=== PATIENT | female | born 1950 | race African-American/Black ===

== ENCOUNTER 2016-06-14 10:42 | Inpatient (IN) | payer OTHER ==
[~2016-06-14] VITALS: Ht 172.7 cm; Wt 98.9 kg
--- NOTE | 2016-06-14 10:50 | NUR ---
PT PRESENTS TO ER C/O OF GENERALIZED ABDOMINAL PAIN AND N/V SINCE YESTERDAY. PT STATES BROTHER IN LAW HAS BEEN SICK WITH SIMILAR SYMPTOMS
--- NOTE | 2016-06-14 10:56 | ED GI/GU/ABDOMINAL COMPLAINT ---
History of Present Illness General Chief Complaint: Abdominal Pain/Flank Pain Stated Complaint: ABD PAIN Source: patient Exam Limitations: no limitations Vital Signs & Intake/Output Vital Signs & Intake/Output Vital Signs Date Time Temp Pulse Resp B/P Pulse O2 O2 Flow FiO2 Ox Delivery Rate 06/14 1447 102.1 106 18 128/58 97 Room Air 06/14 1333 103.8 06/14 1319 103.1 06/14 1254 102.3 95 18 133/63 96 Room Air 06/14 1208 102.4 06/14 1049 97.6 90 20 121/65 95 Room Air Reconcile Medications Cholecalciferol (Vitamin D3) (Vitamin D3) 2,000 UNIT TABLET 1 TAB PO DAILY SUPPLEMENT (Reported) Hydrochlorothiazide 25 MG TABLET 1 TAB PO DAILY WATER PILL (Reported) Losartan Potassium (Cozaar) 50 MG TABLET 1 TAB PO DAILY HEART (Reported) Triage Note: PT PRESENTS TO ER C/O OF GENERALIZED ABDOMINAL PAIN AND N/V SINCE YESTERDAY. PT STATES BROTHER IN LAW HAS BEEN SICK WITH SIMILAR SYMPTOMS Triage Nurses Notes Reviewed? yes ? N Is pt currently ? No Onset: Gradual Duration: day(s): (2) Timing: remote history Quality/Severity: cramping Severity Numbers: 8 Location: periumbilical Radiation: no radiation Activities at Onset: none Prior Abdominal Problems: none Past Sexual History: Unobtainable at this time No Modifying Factors: none HPI: Patient is a 66-year-old female presenting to the emergency department with chief complaint of lower abdominal pain, nausea, vomiting, chills since late last night. Pain progressively getting worse in the periumbilical region. Pain is sharp and stabbing. Her son-in-law was sick with similar symptoms. Denies getting the flu vaccination THIS YR. Denies any diarrhea. Denies any urinary frequency or urgency or dysuria. No shortness of breath. No coughing. Denies upper respiratory congestion. Denies sore throat. No chest pain. (VAHID ARIAS) Allergies Coded Allergies: prednisone (Severe, RASH 06/14/16) Sulfa (Sulfonamide Antibiotics) (UNKNOWN 06/14/16) (DENNIS GUILLEN MD) Past History Travel History Traveled to [place] past 21 day No Medical History Any Pertinent Medical History? see below for history Cardiovascular: hypertension Surgical History Surgical History: non-contributory Psychosocial History What is your primary language Khmer Tobacco Use: Never used Family History Hx Contributory? No (VAHID ARIAS) Review of Systems Review of Systems Constitutional: Reports: see HPI, chills, malaise, weakness. Comments Review of systems: See HPI, All other systems negative. Constitutional, no weight loss HEENT: No visual changes no sore throat no congestion Cardiovascular: No chest pain ,palpitation , orthopnea or ankle swelling Skin, no jaundice no rashes Respiratory: No dyspnea cough sputum or hemoptysis GI: No diarrhea : No dysuria No hematuria Muscle skeletal: no back pain, no neck pain, Neurologic: No numbness no confusion Psych: No stress anxiety Immunology: No splenectomy or history of AIDS (VAHID ARIAS) Physical Exam Physical Exam General Appearance: well developed/nourished, no apparent distress, alert, awake , comfortable Gastrointestinal: soft, tenderness Comments: Well-developed well-nourished person in no acute distress HEENT: Pupils equally round and reactive to light and accommodation. Nose is atraumatic. External auditory canal and Tympanic membranes clear. Pharynx normal. No swelling or edema. Neck: Normal inspection Back: Nontender, no CVA tenderness. Full range of motion Cardiovascular: Regular rate and rhythms no murmurs rubs or gallops, normal JVP Respiratory: Chest nontender. No respiratory distress.breath sounds clear to auscultation bilaterally Abdomen: Soft, tenderness to palpation in the periumbilical region, mild guarding no rebound tenderness, no appreciable organomegaly. Normal bowel sounds. No ascites Extremity: No edema Neuro: Alert oriented x3 Skin: No appreciable rash on exposed skin, skin is warm and dry. Psych: Mood and affect is normal, memory and judgment is normal. Core Measures ACS in differential dx? No Severe Sepsis Present: No Septic Shock Present: No (VAHID ARIAS) Progress Differential Diagnosis: UTI/pyelo, GASTRITIS, DEHYDRATION, ELECTROLYTE ABNORMALITY, VIRAL SYNDROME, PANCREATITIS, CHOLECYSTITIS Plan of Care: Orders Procedure Date/time Status Lab Add-on Test 06/14 1451 Active LACTIC ACID 06/14 1353 Complete EKG 06/14 1350 Active BLOOD CULTURE 06/14 1134 Active TROPONIN LEVEL 06/14 1117 Complete RAPID VIRAL INFLUENZA A 06/14 1114 Complete URINALYSIS 06/14 1100 Complete LIPASE 06/14 1053 Complete LACTIC ACID 06/14 1053 Complete COMPREHENSIVE METABOLIC PANEL 06/14 1053 Complete CBC WITHOUT DIFFERENTIAL 06/14 1053 Complete AMYLASE 06/14 1053 Complete Laboratory Tests 06/14/16 1400: Lactic Acid 1.8 06/14/16 1345: Urine Color YEL, Urine Clarity CLEAR, Urine pH 6.0, Ur Specific [place] 1.010, Urine Protein NEG, Urine Ketones NEG, Urine Nitrite NEG, Urine Bilirubin NEG, Urine Urobilinogen 0.2, Ur Leukocyte Esterase NEG, Ur Microscopic EXAM NOT REQUIRED, Urine Hemoglobin NEG, Urine Glucose NEG 06/14/16 1117: Anion Gap 16, Estimated GFR > 60, BUN/Creatinine Ratio 14.3, Glucose 146 H, Lactic Acid 2.6 H, Calcium 8.9, Total Bilirubin 0.9, AST 21, ALT 29, Alkaline Phosphatase 104, Troponin I < 0.01, Total Protein 7.3, Albumin 3.9, Globulin 3.4 , Albumin/Globulin Ratio 1.1, Amylase 52, Lipase 22 L, CBC w Diff NO MAN DIFF REQ, RBC 4.87, MCV 80.0 L, MCH 26.5 L, RDW 14.6 H, MPV 9.5, Gran % 87.5 H, Lymphocytes % 11.6 L, Monocytes % 0.6 L, Eosinophils % 0, Basophils % 0.3, Absolute Granulocytes 12.3 H, Absolute Lymphocytes 1.6, Absolute Monocytes 0.1 L, Absolute Eosinophils 0, Absolute Basophils 0, PUBS MCHC 33.1 Microbiology 06/14 1345 BLOOD: Blood Culture - RECD 06/14 1202 BLOOD: Blood Culture - RECD Diagnostic Imaging: Viewed by Me: CT Scan. Discussed w/RAD: CT Scan. Radiology Impression: ATIENT: JOSÉ MIGUELMILO PRESENT AGE : 66 PATIENT ACCOUNT NO: [id number] : 51 LOCATION: [facility] ORDERING PHYSICIAN: VAHID DAVID SERVICE DATE: 06/14/16 EXAM TYPE: CAT - CT ABD & PELVIS W IV CONTRAST EXAMINATION: CT ABDOMEN AND PELVIS WITH CONTRAST CLINICAL INFORMATION: Nausea vomiting and abdominal pain. COMPARISON: None. TECHNIQUE: Multidetector volumetric imaging was performed of the abdomen and pelvis before and after the IV administration of 95 mL of Optiray 320 intravenous contrast. Sagittal and coronal reformatted images were obtained on the technologist's workstation. DLP: 884 mGy-cm. FINDINGS: LUNG BASES: Small focus of probable subsegmental discoid atelectasis posterior basal segment right lower lobe. LIVER AND SPLEEN: Unremarkable. Incidental note is made of a prominent Jade's lobe of the liver, normal variation. Spleen appears unremarkable. PANCREAS GALLBLADDER AND BILIARY TREE: Pancreas appears somewhat atrophic. Gallbladder and biliary tree are unremarkable. KIDNEYS, URETERS, AND ADRENALS: Unremarkable. URINARY BLADDER: Unremarkable containing a small amount of fluid. GI TRACT: There is a small sliding hiatal hernia. There are multiple air and fluid-filled loops of large and small bowel scattered throughout the abdomen most likely an ileus type of pattern although the distal small bowel is less dilated than the proximal. The cecum is located deep within the pelvis. The patient's appendix is dilated measuring up to 15 mm maximal dimension best seen on axial image 73 through 86 of series 2 and sagittal image 82. The appendix loops superiorly and then continues inferiorly back into the pelvis towards the right with moderate surrounding soft tissue stranding and and a small amount of intraperitoneal free fluid most consistent with an acute appendicitis. No extraluminal gas is identified, however rupture is questioned. PERITONEAL CAVITY : There is a small amount of intraperitoneal free fluid along the left paracolic gutter, and a small amount of free fluid in the deep pelvis with associated soft tissue stranding as noted above. RETROPERITONEUM: Mild atherosclerotic aortic changes without aneurysmal dilatation. PELVIC ORGANS: Uterus is not identified and is likely been removed. What appears to represent the bilateral adnexa appear unremarkable. OSSEOUS STRUCTURES: No focal osseous lesions. Mild degenerative changes. ANTERIOR ABDOMINAL WALL AND SOFT TISSUES: There is diastases of the rectus abdominis musculature with a small periumbilical hernia containing only mesenteric fat. There are small benign-appearing bilateral inguinal lymph nodes. IMPRESSION: 1. These are most consistent with acute appendicitis with questionable rupture. No definite abscess is seen at this time. 2. Ileus type of pattern of large and small bowel. 3. Small sliding hiatal hernia. 4. Small periumbilical hernia. 5. Otherwise largely unremarkable examination. Results were discussed with Vahid DAVID at 1345 hrs on 08/2016. It was ascertained that the content and urgency of the report was understood at the time of direct communication. Surgical consultation was recommended. DICTATED BY: LEONIDES NAM MD DATE/TIME DICTATED:06/14/161317 FLOOR COVERING PRINTER:MARLEY DATE/TIME TRANSCRIBED:06/14/161317 CONFIDENTIAL, DO NOT COPY WITHOUT APPROPRIATE AUTHORIZATION. <Electronically signed in Other Vendor System> SIGNED BY: LEONIDES NAM MD 06/14/16 1354 Initial ED EKG: sinus rhythm 100 bpm, PVCs, nonspecific T abnormalities Prior EKG: changed Comments: 06/14/2016 12:18:59 PM on arrival patient is afebrile in moderate distress with reproducible periumbilical pain with guarding. Patient also reports nausea and vomiting. Cannot exclude appendicitis, viral syndrome. Patient will be started on IV fluids, given IV Tylenol for pain 06/14/2016 12:39:24 PM shortly after arrival patient spiked fever of 102. IV Tylenol self using. Patient reports feeling somewhat improved with IV Tylenol. 06/14/2016 12:59:[address] results at this time. Patient resting comfortably. 06/14/2016 1:40:07 PM on reevaluation patient feeling improved, still having moderate abdominal pain on exam. CT shows acute appendicitis with questionable rupture. IV Rocephin and Flagyl initiated. IV Toradol and IV fluids being given as well. Spoke with Dr. Caal, he will take the patient operating room this evening for removal of appendix. 06/14/2016 2:18:50 PM surgical physician assistant director of security in to evaluate the patient. 06/14/2016 2:38:18 PM patient will go to the operating room around 5 PM this evening. Resting comfortably. Slow fluids infusing. (MOHIT DAVID,VAHID) Departure Departure Time of Disposition: 1416 Disposition: STILL A PATIENT Condition: Stable Clinical Impression Primary Impression: Acute appendicitis Qualifiers: Acute appendicitis type: unspecified acute appendicitis type Qualified Code: K35.80 - Unspecified acute appendicitis Referrals: MARIA R COOPER MD (PCP/Family) Referred to [facility] as new patient No Departure Forms: Customer Survey General Discharge Information OR/GI Note Spoke With: BEN TERRELL,JOCELINE Caballero ED Treatment Decision: MILO VALDEZ requires urgent operative management or an emergent procedure that cannot be performed in the Emergency Room setting. Patient requiring surgical removal of the neck secondary to infection. Transport To: [facility] (VAHID ARIAS) PA/WHISTLE PUNK Co-Sign Statement Statement: ED Attending supervision documentation- x I saw and evaluated the patient. I have also reviewed all the pertinent lab results and diagnostic results. I agree with the findings and the plan of care as documented in the PA's/WHISTLE PUNK's documentation. [] I have reviewed the ED Record and agree with the PA's/WHISTLE PUNK's documentation. [] Additions or exceptions (if any) to the PAs/WHISTLE PUNK's note and plan are summarized below: [] (WILMER TERRELL,DENNIS)
--- NOTE | 2016-06-14 11:21 | NUR ---
BLOOD DRAWN 1SST, 1 BLUE, 1 LAV, 1 CASTRO
[2016-06-14 11:25] LABS: ABSOLUTE BASOPHIL COUNT 0 /CUMM (0.0-0.2); ABSOLUTE EOSINOPHIL COUNT 0 /CUMM (0.0-0.7); ABSOLUTE GRANULOCYTE CT 12.3 /CUMM (1.4-6.5); ABSOLUTE LYMPH COUNT 1.6 /CUMM (1.2-3.4); ABSOLUTE MONOCYTE COUNT 0.1 /CUMM (0.10-0.60); BASOPHIL % 0.3 % (0.0-2.0); EOSINOPHIL % 0 % (0-5); MEAN CORPUSCULAR HGB 26.5 PG (27.0-31.0); MEAN CORPUSCULAR HGB CONC 33.1 G/DL (33.0-37.0); MEAN PLATELET VOLUME 9.5 FL (7.4-10.4); PLATELET COUNT 250 /CUMM (130-400); RBC DISTRIBUTION WIDTH 14.6 % (11.5-14.5); RED BLOOD CELL CT 4.87 /CUMM (4.20-5.40); WHITE BLOOD CELL COUNT 14.1 /CUMM (4.8-10.8)
[2016-06-14 11:51] LABS: GRANULOCYTE % 87.5 % (42.2-75.2)
--- NOTE | 2016-06-14 12:05 | NUR ---
FLU SWAB SENT. PA NOTIFIED OF TEMP 102.4, 1ST SET BLD CX SENT, IV EST AND FLUIDS RUNNING.
--- NOTE | 2016-06-14 12:59 | NUR ---
TP CT VIA STRETCHER. PT HAS BEEN SLEEPING.
--- NOTE | 2016-06-14 13:31 | NUR ---
BACK FROM CT, 2ND LITER IVF INFUSING AND TORADOL GIVEN. MST AT BEDSIDE FOR ADDITIONAL ATTEMPT AT 2ND SET BLD CX.
--- NOTE | 2016-06-14 13:55 | CT SCAN REPORT ---
EXAMINATION: CT ABDOMEN AND PELVIS WITH CONTRAST CLINICAL INFORMATION: Nausea vomiting and abdominal pain. COMPARISON: None. TECHNIQUE: Multidetector volumetric imaging was performed of the abdomen and pelvis before and after the IV administration of 95 mL of Optiray 320 intravenous contrast. Sagittal and coronal reformatted images were obtained on the technologist's workstation. DLP: 884 mGy-cm. FINDINGS: LUNG BASES: Small focus of probable subsegmental discoid atelectasis posterior basal segment right lower lobe. LIVER AND SPLEEN: Unremarkable. Incidental note is made of a prominent Jade's lobe of the liver, normal variation. Spleen appears unremarkable. PANCREAS GALLBLADDER AND BILIARY TREE: Pancreas appears somewhat atrophic. Gallbladder and biliary tree are unremarkable. KIDNEYS, URETERS, AND ADRENALS: Unremarkable. URINARY BLADDER: Unremarkable containing a small amount of fluid. GI TRACT: There is a small sliding hiatal hernia. There are multiple air and fluid-filled loops of large and small bowel scattered throughout the abdomen most likely an ileus type of pattern although the distal small bowel is less dilated than the proximal. The cecum is located deep within the pelvis. The patient's appendix is dilated measuring up to 15 mm maximal dimension best seen on axial image 73 through 86 of series 2 and sagittal image 82. The appendix loops superiorly and then continues inferiorly back into the pelvis towards the right with moderate surrounding soft tissue stranding and and a small amount of intraperitoneal free fluid most consistent with an acute appendicitis. No extraluminal gas is identified, however rupture is questioned. PERITONEAL CAVITY: There is a small amount of intraperitoneal free fluid along the left paracolic gutter, and a small amount of free fluid in the deep pelvis with associated soft tissue stranding as noted above. RETROPERITONEUM: Mild atherosclerotic aortic changes without aneurysmal dilatation. PELVIC ORGANS: Uterus is not identified and is likely been removed. What appears to represent the bilateral adnexa appear unremarkable. OSSEOUS STRUCTURES: No focal osseous lesions. Mild degenerative changes. ANTERIOR ABDOMINAL WALL AND SOFT TISSUES: There is diastases of the rectus abdominis musculature with a small periumbilical hernia containing only mesenteric fat. There are small benign-appearing bilateral inguinal lymph nodes. IMPRESSION: 1. These are most consistent with acute appendicitis with questionable rupture. No definite abscess is seen at this time. 2. Ileus type of pattern of large and small bowel. 3. Small sliding hiatal hernia. 4. Small periumbilical hernia. 5. Otherwise largely unremarkable examination. Results were discussed with Elana DAVID at 1345 hrs on 06/14/2016. It was ascertained that the content and urgency of the report was understood at the time of direct communication. Surgical consultation was recommended.
--- NOTE | 2016-06-14 14:17 | NUR ---
SURGICAL PA AT BEDSIDE
[2016-06-14] MEDS ORDERED: COZAAR50 M1 PO (14:36)
[2016-06-14] MEDS ORDERED: VITAMIN D32000 UNI1 PO (14:37)
[2016-06-14] MEDS ORDERED: HYDROCHLOROTHIA25 M1 PO (14:37)
--- NOTE | 2016-06-14 15:00 | NUR ---
PT REPORTS MORPHINE IS HELPING AND FEELS HER PAIN IS TOLERABLE RIGHT NOW. CONSENTED FOR OR BY SURGICAL PA. OR TIME 1700.
--- NOTE | 2016-06-14 15:10 | History & Physical Pre-Op ---
GARETH LUZ 06/14/16 8967: General Information and HPI MD Statement: I have seen and personally examined MILO VALDEZ and documented this H&P. The patient is a 66 year old F who presented with a patient stated chief complaint of [ABDOMINAL PAIN]. Source of Information: patient Exam Limitations: no limitations History of Present Illness: This 66 year old female with history of hypertension presents with less than 24 hours of abdominal pain. She reports initially feeling chills, followed by abdominal "pressure" and pain, followed by nausea and vomiting this morning. She reports she thought she might have had a uti causing her abdominal discomfort, but denies dysuria. Also reports some dizziness intermittently since yesterday. No shortness of breath. No chest pains. No changes with bowel function. She was going to see her PCP, Dr.Sudipta Storm, until her symptoms became intolerable. Allergies/Medications Allergies: Coded Allergies: prednisone (Severe, RASH 06/14/16) Sulfa (Sulfonamide Antibiotics) (UNKNOWN 06/14/16) Home Med list Cholecalciferol (Vitamin D3) (Vitamin D3) 2,000 UNIT TABLET 1 TAB PO DAILY SUPPLEMENT (Reported) Hydrochlorothiazide 25 MG TABLET 1 TAB PO DAILY WATER PILL (Reported) Losartan Potassium (Cozaar) 50 MG TABLET 1 TAB PO DAILY HEART (Reported) Past History Medical History Cardiovascular: hypertension Surgical History Pertinent Surgical History: hysterectomy, knee arthroscopy, meniscal repair Past Family/Social History Family History Relations & Conditions if any MOTHER FH: diabetes mellitus MOTHER FH: diabetes mellitus Relation not specified for: FH: heart disease Psychosocial History Primary Language: Nepalese Smoking Status: Never Smoked ETOH Use: occasional use Other Social History: . 2 children. Employment History Employment: Retired Review of Systems Review of Systems: admits: abdominal pain, nausea and vomiting, chills and sweats, dizziness denies: shortness of breath, chest pain, dysuria, constipation/diarrhea Exam & Diagnostic Data Last 24 Hrs of Vital Signs/I&O Vital Signs Date Time Temp Pulse Resp B/P Pulse O2 O2 Flow FiO2 Ox Delivery Rate 06/14 1447 102.1 106 18 128/58 97 Room Air 06/14 1333 103.8 06/14 1319 103.1 06/14 1254 102.3 95 18 133/63 96 Room Air 06/14 1208 102.4 06/14 1049 97.6 90 20 121/65 95 Room Air Intake & Output 06/14 1600 06/14 0800 06/14 0000 Intake Total 2200 Output Total Balance 2200 Intake, IV 2200 Patient 218 lb Weight Physical Exam: General - alert & oriented x 3. uncomfortable. no acute distress. Skin - no rashes noted. Neck - soft and supple. no lymphadenopathy. Lungs - clear bilaterally. no w/r/r. Cardiac - s1s2. tachycardic 100s-110 Abdomen - obese. soft. no bowel sounds appreciated. low transverse incision appreciated from prior hysterectomy. diffusely tender, but mostly in right lower quadrant. Extremities - warm bilaterally. no c/c/e. calves soft and nontender b/l. Neuro - no focal deficits. speech smooth and coordinated. no motor or sensory deficits appreciated. Last 24 Hrs of Labs/Jose A: Laboratory Tests 06/14/16 1400: Lactic Acid 1.8 06/14/16 1345: Urine Color YEL, Urine Clarity CLEAR, Urine pH 6.0, Ur Specific Hooper 1.010, Urine Protein NEG, Urine Ketones NEG, Urine Nitrite NEG, Urine Bilirubin NEG, Urine Urobilinogen 0.2, Ur Leukocyte Esterase NEG, Ur Microscopic EXAM NOT REQUIRED, Urine Hemoglobin NEG, Urine Glucose NEG 06/14/16 1117: Anion Gap 16, Estimated GFR > 60, BUN/Creatinine Ratio 14.3, Glucose 146 H, Lactic Acid 2.6 H, Calcium 8.9, Total Bilirubin 0.9, AST 21, ALT 29, Alkaline Phosphatase 104, Troponin I Pending, Total Protein 7.3, Albumin 3.9, Globulin 3.4, Albumin/Globulin Ratio 1.1, Amylase 52, Lipase 22 L, CBC w Diff NO MAN DIFF REQ, RBC 4.87, MCV 80.0 L, MCH 26.5 L, RDW 14.6 H, MPV 9.5, Gran % 87.5 H, Lymphocytes % 11.6 L, Monocytes % 0.6 L, Eosinophils % 0, Basophils % 0.3, Absolute Granulocytes 12.3 H, Absolute Lymphocytes 1.6, Absolute Monocytes 0.1 L, Absolute Eosinophils 0, Absolute Basophils 0, PUBS MCHC 33.1 Microbiology 06/14 1345 BLOOD: Blood Culture - RECD 06/14 1202 BLOOD: Blood Culture - RECD Diagnostic Data Other Results EXAMINATION: CT ABDOMEN AND PELVIS WITH CONTRAST CLINICAL INFORMATION: Nausea vomiting and abdominal pain. COMPARISON: None. TECHNIQUE: Multidetector volumetric imaging was performed of the abdomen and pelvis before and after the IV administration of 95 mL of Optiray 320 intravenous contrast. Sagittal and coronal reformatted images were obtained on the technologist's workstation. DLP: 884 mGy-cm. FINDINGS: LUNG BASES: Small focus of probable subsegmental discoid atelectasis posterior basal segment right lower lobe. LIVER AND SPLEEN: Unremarkable. Incidental note is made of a prominent Jade's lobe of the liver, normal variation. Spleen appears unremarkable. PANCREAS GALLBLADDER AND BILIARY TREE: Pancreas appears somewhat atrophic. Gallbladder and biliary tree are unremarkable. KIDNEYS, URETERS, AND ADRENALS: Unremarkable. URINARY BLADDER: Unremarkable containing a small amount of fluid. GI TRACT: There is a small sliding hiatal hernia. There are multiple air and fluid-filled loops of large and small bowel scattered throughout the abdomen most likely an ileus type of pattern although the distal small bowel is less dilated than the proximal. The cecum is located deep within the pelvis. The patient's appendix is dilated measuring up to 15 mm maximal dimension best seen on axial image 73 through 86 of series 2 and sagittal image 82. The appendix loops superiorly and then continues inferiorly back into the pelvis towards the right with moderate surrounding soft tissue stranding and and a small amount of intraperitoneal free fluid most consistent with an acute appendicitis. No extraluminal gas is identified, however rupture is questioned. PERITONEAL CAVITY: There is a small amount of intraperitoneal free fluid along the left paracolic gutter, and a small amount of free fluid in the deep pelvis with associated soft tissue stranding as noted above. RETROPERITONEUM: Mild atherosclerotic aortic changes without aneurysmal dilatation. PELVIC ORGANS: Uterus is not identified and is likely been removed. What appears to represent the bilateral adnexa appear unremarkable. OSSEOUS STRUCTURES: No focal osseous lesions. Mild degenerative changes. ANTERIOR ABDOMINAL WALL AND SOFT TISSUES: There is diastases of the rectus abdominis musculature with a small periumbilical hernia containing only mesenteric fat. There are small benign-appearing bilateral inguinal lymph nodes. IMPRESSION: 1. These are most consistent with acute appendicitis with questionable rupture. No definite abscess is seen at this time. 2. Ileus type of pattern of large and small bowel. 3. Small sliding hiatal hernia. 4. Small periumbilical hernia. 5. Otherwise largely unremarkable examination. Results were discussed with Elana DAVID at 1345 hrs on 06/14/2016. It was ascertained that the content and urgency of the report was understood at the time of direct communication. Surgical consultation was recommended. DICTATED BY: LEONIDES NAM MD DATE/TIME DICTATED:06/14/161317 BEHAVIORAL HEALTH CLINICIAN:MARLEY DATE/TIME TRANSCRIBED:06/14/161317 Assessment/Plan Assessment/Plan: This 66 year old female with history of hypertension presents with acute appendicitis, with possible rupture/perforation currently npo / iv fluids iv antibiotics initiated in the ED called hospitalist to review ekg and co-manage restart blood pressure medication in the morning. hold lasix. hep sc to start post-op for dvt ppx pain medication as needed will d/w Dr.Soto Greco called for consultation As Ranked By This Provider Problem List: 1. Acute appendicitis 2. Hypertension JOCELINE CONTRERAS MD 06/14/161927: Attending MD Review Statement Attending Statement Attending MD Statement: examined this patient, discuss w/resident/PA/REFUELING RAMP SUPERVISOR, discussed with family, reviewed EMR data (avail), reviewed images Attending Assessment/Plan: 66-year-old obese woman with cardiovascular comorbidities presents with progressive abdominal pain. She now has high spiking fevers, diffuse abdominal pain and CT scan images showing what appeared to be a collection of extraluminal stool in the pelvis. Overall impression is that of her frequent appendicitis with diffuse peritonitis. Plan will be to give her broad-spectrum antibiotics, fluid resuscitation and prompt laparoscopic appendectomy. Patient's informed the risks of the operation including bleeding and recurrent infections she agrees proceed.
--- NOTE | 2016-06-14 15:11 | Admission Core Measures ---
Acute Coronary Syndrome Inclusion Criteria ACS Diagnosis No Inpatient Core Measures LDL Reminder: If No, please order W/I first 24hr of stay Congestive Heart Failure Inclusion Criteria CHF Diagnosis No Cerebrovascular accident Inclusion Criteria CVA/TIA Diagnosis No Inpatient Core Measures Bedside Swallow Eval Reminder: If BSE failed, place ST order Antithrombotic Reminder: Order Antithrombotic Medication by end of day 2 Antithrombotic Reminder: Document Reason Antithrombotic Not ordered by end of day 2 AFIB/Flutter Reminder: If Present, add to problem list AFIB/Flutter Reminder: Order Anticoag Medication for pts with AFIB/Flutter Atherosclerosis Reminder: If Present, add to problem list LDL Reminder: If No, please order W/I first 24hr of stay PT Order Reminder: If No, please order Venous thromboembolism Inpatient Core Measures VTE Risk Factors: Age > 40, Obesity, Surgery VTE Prophylaxis Ordered Inpt Mech & Pharm No Mech VTE prophylaxis d/t No contraindications No VTE Pharm Prophylaxis d/t No contraindications Inclusion Criteria - Per Current guidelines, there needs to be overlap - treatment for the first 5 days of Warfarin therapy. - Parenteral Anticoagulation (IV or SC) needs to be - given along with Warfarin therapy. VTE Diagnosis No VTE Type NONE VTE Confirmed by (Test) NONE Problem List As ranked by this Provider includes Assessment & Plan 1. Acute appendicitis 2. Hypertension HOME MEDS Home Med List Cholecalciferol (Vitamin D3) (Vitamin D3) 2,000 UNIT TABLET 1 TAB PO DAILY SUPPLEMENT (Reported) Hydrochlorothiazide 25 MG TABLET 1 TAB PO DAILY WATER PILL (Reported) Losartan Potassium (Cozaar) 50 MG TABLET 1 TAB PO DAILY HEART (Reported)
--- NOTE | 2016-06-14 15:44 | NUR ---
DR WHITEHEAD AT BEDSIDE
--- NOTE | 2016-06-14 16:15 | NUR ---
PREOP SCRUB DONE
--- NOTE | 2016-06-14 16:21 | Cons- Medical ---
ROSHAN TERRELL,JOSE 06/14/16 1601: General Information and HPI Consulting Request Date of Consult: 06/14/16 Requested By: Angelo Caal MD Reason for Consult: EKG changes Source of Information: patient, family, old records Exam Limitations: no limitations History of Present Illness: This is a 66-year-old female with a past medical history of hypertension, JOSEPH on nocturnal CPAP who presented to the ED after she started having right lower quadrant abdominal pain since early this morning. According to the patient, she started having fevers and chills last night. This morning she started to have nausea and threw up several times. Also this she was having right lower quadrant abdominal pain gradually increasing in intensity to greater than 10 over 10 when she decided to come to the ED. She denied any diarrhea, urinary symptoms, pain anywhere else in the abdomen, back pain. Her past medical history consists of hypertension currently maintained on HCTZ and losartan. She reports that she underwent a stress test more than 25 years ago (done by Dr. Reddy for chest discomfort), results of which were normal. She has not seen a electrolog operator since then. Her last echo was done 6 months ago at her PCP Dr. bradshaw office and was reportedly within normal limits. At this current time, she denies any chest pain, chest discomfort, palpitations, shortness of breath, calf pain etc. Allergies/Medications Allergies: Coded Allergies: prednisone (Severe, RASH 06/14/16) Sulfa (Sulfonamide Antibiotics) (UNKNOWN 06/14/16) Home Med List: Cholecalciferol (Vitamin D3) (Vitamin D3) 2,000 UNIT TABLET 1 TAB PO DAILY SUPPLEMENT (Reported) Hydrochlorothiazide 25 MG TABLET 1 TAB PO DAILY WATER PILL (Reported) Losartan Potassium (Cozaar) 50 MG TABLET 1 TAB PO DAILY HEART (Reported) Current Medications: Current Medications Sig/Floridalma Start time Last Medication Dose Route Stop Time Status Admin Acetaminophen 0 .STK-MED ONE 06/14 1207 DC IV Acetaminophen 1,000 MG ONCE ONE 06/14 1145 DC 06/14 N/A 1 UNIT IV 06/14 1159 1208 Ceftriaxone Sodium 1,000 MG ONCE ONE 06/14 1400 DC 06/14 IV 06/14 1401 1359 Ceftriaxone Sodium 0 .STK-MED ONE 06/14 1355 DC .ROUTE Ketorolac 15 MG ONCE ONE 06/14 1330 DC 06/14 Tromethamine IV 06/14 1331 1331 Ketorolac 0 .STK-MED ONE 06/14 1328 DC Tromethamine .ROUTE Metronidazole 500 MG ONCE ONE 06/14 1400 DC 06/14 N/A 1 UNIT IV 06/14 1459 1407 Morphine Sulfate 0 .STK-MED ONE 06/14 1402 DC .ROUTE Morphine Sulfate 2 MG ONCE ONE 06/14 1400 DC / IV 06/14 1401 1407 Sodium Chloride 1,000 ML ONCE ONE 06/14 1445 AC 06/14 IV 06/15 0404 1510 Sodium Chloride 1,000 ML BOLUS ONE 06/14 1330 DC / IV 06/14 1429 1331 Sodium Chloride 1,000 ML BOLUS ONE 06/14 1100 DC 06/14 IV 06/14 1259 1204 Review of Systems Review of Systems Constitutional: Reports: see HPI. Past History Travel History Traveled to [facility] past 21 day No Medical History Cardiovascular: hypertension Respiratory: JOSEPH on nocturnal CPAP Surgical History Surgical History: hysterectomy, knee arthroscopy, meniscal repair Family History Relations & Conditions If Any: MOTHER FH: diabetes mellitus MOTHER FH: diabetes mellitus Relation not specified for: FH: heart disease Psychosocial History Primary Language: Frisian Smoking Status: Never Smoked ETOH Use: occasional use Other Social History: . 2 children. Functional Ability ADLs Independent: dressing, eating, toileting, bathing. Ambulation: independent IADLs Independent: shopping, housework, finances, food prep, telephone, transportation , medication admin. 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 [employer] Data Last 24 Hrs of Vital Signs/I&O Vital Signs Date Time Temp Pulse Resp B/P Pulse O2 O2 Flow FiO2 Ox Delivery Rate 06/14 1447 102.1 106 18 128/58 97 Room Air 06/14 1333 103.8 06/14 1319 103.1 06/14 1254 102.3 95 18 133/63 96 Room Air 06/14 1208 102.4 06/14 1049 97.6 90 20 121/65 95 Room Air Intake & Output 06/14 1600 06/14 0800 06/14 0000 Intake Total 2200 Output Total Balance 2200 Intake, IV 2200 Patient 218 lb Weight Physical Exam General Appearance: well developed/nourished, no apparent distress, alert, awake , comfortable Respiratory: normal breath sounds, chest non-tender, no respiratory distress Cardiovascular: regular rate/rhythm Gastrointestinal: normal bowel sounds, soft, non-tender Extremities: normal inspection Neurologic/Psych: no motor/sensory deficits, awake, alert, oriented x 3, normal mood/affect Cranial Nerves: normal hearing, normal speech Last 24 Hrs of Labs/Jose A: Laboratory Tests 06/14/16 1400: Lactic Acid 1.8 06/14/16 1345: Urine Color YEL, Urine Clarity CLEAR, Urine pH 6.0, Ur Specific [place] 1.010, Urine Protein NEG, Urine Ketones NEG, Urine Nitrite NEG, Urine Bilirubin NEG, Urine Urobilinogen 0.2, Ur Leukocyte Esterase NEG, Ur Microscopic EXAM NOT REQUIRED, Urine Hemoglobin NEG, Urine Glucose NEG 06/14/16 1117: Anion Gap 16, Estimated GFR > 60, BUN/Creatinine Ratio 14.3, Glucose 146 H, Lactic Acid 2.6 H, Calcium 8.9, Magnesium Pending, Total Bilirubin 0.9, AST 21, ALT 29, Alkaline Phosphatase 104, Troponin I < 0.01, Total Protein 7.3, Albumin 3.9, Globulin 3.4, Albumin/Globulin Ratio 1.1, Amylase 52, Lipase 22 L, CBC w Diff NO MAN DIFF REQ, RBC 4.87, MCV 80.0 L, MCH 26.5 L, RDW 14.6 H, MPV 9.5, Gran % 87.5 H, Lymphocytes % 11.6 L, Monocytes % 0.6 L, Eosinophils % 0, Basophils % 0.3, Absolute Granulocytes 12.3 H, Absolute Lymphocytes 1.6, Absolute Monocytes 0.1 L, Absolute Eosinophils 0, Absolute Basophils 0, PUBS MCHC 33.1 Diagnostic Data EKG Results ?? Changes in lead 2, ?? Secondary to abnormal lead. Sinus tachycardia at [address]-T wave changes. Other Results CT ABD & PELVIS W IV CONTRAST: IMPRESSION: 1. These are most consistent with acute appendicitis with questionable rupture. No definite abscess is seen at this time. 2. Ileus type of pattern of large and small bowel. 3. Small sliding hiatal hernia. 4. Small periumbilical hernia. 5. Otherwise largely unremarkable examination. Assessment/Plan Assessment/Plan Is a 66-year-old woman with a past medical history of hypertension, JOSEPH on nocturnal CPAP who presented to the ED after abdominal pain 1 was diagnosed with acute appendicitis, currently scheduled for surgery. EKG showed minor changes which were thought to be secondary to effectively versus lead placement. Repeat EKG showed trigeminy. Calcium and magnesium levels at this time are pending. Problem list: * Acute appendicitis pending emergent appendectomy * Changes on initial EKG secondary to defective lead, resolved with subsequent EKG. * Hypertension controlled on oral medications * Obstructive sleep apnea on nocturnal CPAP RCR I: Carries a 0.4% risk of a major cardiac event perioperatively for a low- risk surgery. Plan: * Patient is being admitted to general surgery service for emergent appendectomy * Follow-up on calcium and magnesium * Patient need not be on telemetry post surgery and she does not have any EKG changes requiring monitoring * Post surgery, patient can be started on her home medications. Thank you for the consult. Problem List: 1. Acute appendicitis 2. Hypertension Other Findings/Comments: See above Consult Acknowledgment - Thank you for your consult request. NATALIYA WHITEHEAD MD 06/14/16 1966: Assessment/Plan Consult Acknowledgment - Thank you for your consult request. Attending MD Review Statement Attending Statement Attending MD Statement: examined this patient, discuss w/resident/PA/SENIOR ASIC ENGINEER, agreed w/resident/PA/SENIOR ASIC ENGINEER, discussed with family, reviewed EMR data (avail), discussed with nursing, reviewed images, amended to note Attending Assessment/Plan: The patient is a 66 yo female with h/o HTN & JOSEPH (on CPAP) who presented on the day of admission in the [facility] ED with 1 day h/o severe abdominal pain. Pain was mostly RLQ, however became more diffuse and patient was noted to be febrile on the day of admission. CT suggested acute appendicitis with possible rupture with plan for urgent surgery. EKG on admission showed some PVC's (RUE limb lead absent) with some non-specific T wave flattening in lateral precordial leads. EKG was similar to prior OP EKG 12/[address] Storm's office. The patient denied any exertional chest pain or dyspnea. Has had ECHO and prior stress test done as OP that patient reports were negative. Physical Exam: VS: T 102.1, P 106-90, R 18, BP 128/58, PO 97% RA HEENT: eyes- PERRLA, EOMI rona- sl dry mucosa Neck: no bruits, JVD or adenopathy Chest: clear Cor: RRR, nl S1, S2 w/o murm Abd: BS+ (quiet), soft, + mild diffuse tender that is more in RLQ with +/- guarding w/o rebound Ext: no edema, pulses 2+ Neuro: alert & oriented x 3, non-focal Impression/Plan: #Acute Appendicitis- with possible rupture on CT/clinically. RCRI score low (). Plan: Agree with urgent surgical intervention today as per Dr. Caal. Medically stable for planned surgery. #Sepsis- with elevated WBC 14.1, Temp 102, elevated lactate level initially (2.4 - decreased on follow-up), tachycardia, etc. Due to appendicitis. Plan: BC x 2, IV antibiotics (Ceftriaxone/Metronidazole given in ED). Follow temperature/etc. #EKG Changes- some very non-specific T flattening in lateral precordial leads, however no significant changes from prior outside tracing (other than PVC's/ quadrigeminy). Has had negative ECHO and stress in past. No ischemic symptoms with exertion. Plan: Will check Ca/Mg levels and follow. #JOSEPH- on CPAP. Plan: Advised patient should continue on CPAP in hospital. Will continue. #Essential Hypertension- BP stable. Plan: Will continue usual meds when able to take po.
--- NOTE | 2016-06-14 16:30 | NUR ---
OR CALLING TRANSPORT FOR PT--PT STATES SHE CANNOT VOID AT THIS TIME. IV NS D/C, OR CALLED BEFORE D5NS WITH K COULD BE STARTED. OR CHECKLIST COMPLETE.
--- NOTE | 2016-06-14 19:34 | Operative Report ---
Operative/Inv Procedure Report Surgery Date: 06/14/16 Name of Procedure: Laparoscopic appendectomy Pre-Operative Diagnosis: Acute appendicitis with perforation and peritonitis Post-Operative Diagnosis: Same Estimated Blood Loss: scant Surgeon/Skilled Nursing Professional: Angelo Caal M.D./FRANKIE Ibanez Anesthesia: general endotracheal tube Drains: None Specimens: Appendix Microbiology: Peritoneal fluid for culture Operative/Procedure Note Note: After consent she was brought to the operating room and laid supine. Gen. anesthesia was obtained and her abdomen was prepped and draped. Skin above the umbilicus was after local anesthesia transverse incision made sharply. We dissected the fascia and grasped it with [place]'s. Fasciotomies crated sharply and stay sutures placed. A blunt Ray port was placed. Pneumoperitoneum was achieved. There is diffuse peritonitis. 2, 5 mm ports were placed in suprapubic region and left lower quadrant after local anesthesia was instilled and under direct vision the camera. She's placed in steep Trendelenburg and rotated towards the left. The small bowel loops are diffusely inflamed and adherent to one another with fibrinous debris. The omentum was peeled off of it and the pelvis explored. She'll low riding cecum that extended into her pelvis. We could not identify the appendix for about 20 minutes. We dissected down the pelvis and try to free up the small bowel loops from the pelvis. It was quite difficult to see. Eventually we placed a fourth 5 mm port and were able to retract the cecum by grasping Treves fold. This allowed visualization of the appendix. A window in the mesentery was then taken with the [place] dissector and the Aureliano the appendix divided with the Endo ANDERSON stapler. I then divided the meso appendix with the LigaSure device. Appendix placed in Endo Catch bag and cinched up. There is no obvious hole seen in the appendix with a fecalith. The fecalith was broken up and suction irrigated up. The entire perineal cavity was and suction irrigated with normal saline. Within remove the ports deliver the appendix and passed off the field. The fascia was closed 0 Vicryl suture. Skin incisions closed with 4-0 Vicryl. Sterile dressings were applied. Findings: Diffuse peritonitis CC: ALLISON TERRELL,MARIA R Lee
--- NOTE | 2016-06-14 21:04 | PN- General Surgery ---
Subjective Subjective: Post Op Note s/p laparoscopic appendectomy for perforated appendicitis Pain well controlled, patient without c/o. NPO, had minor nausea which was relieved by PRN zofran. No emesis. Denies CP/SOB Objective Vital Signs and I&Os Vital Signs Date Time Temp Pulse Resp B/P Pulse O2 O2 Flow FiO2 Ox Delivery Rate 06/14 1617 100.3 108 20 99/53 96 Room Air 06/14 1447 102.1 106 18 128/58 97 Room Air 06/14 1333 103.8 06/14 1319 103.1 06/14 1254 102.3 95 18 133/63 96 Room Air 06/14 1208 102.4 06/14 1049 97.6 90 20 121/65 95 Room Air Intake & Output 06/14 1600 06/14 0800 06/14 0000 06/13 1600 06/13 0800 06/13 0000 Intake Total 2200 Output Total Balance 2200 Intake, IV 2200 Patient 218 lb Weight Physical Exam: Gen: NAD, sleeping but arousable. Comfortable Chest: CTAB, RRR Abd: Soft, mildly distended. Appropriately TTP. Dressings c/d/i. Hypoactive bowel sounds. Ext: No calve swelling/TTP, neurovascularly intact bilateral lower extremitiesPr Current Medications: Current Medications Sig/Floridalma Start time Last Medication Dose Route Stop Time Status Admin Acetaminophen 0 .STK-MED ONE 06/14 1207 DC IV Acetaminophen 1,000 MG ONCE ONE 06/14 1145 DC 06/14 N/A 1 UNIT IV 06/14 1159 1208 Ceftriaxone Sodium 1,000 MG ONCE ONE 06/14 1400 DC 06/14 IV 06/14 1401 1359 Ceftriaxone Sodium 0 .STK-MED ONE 06/14 1355 DC .ROUTE Heparin Sodium 5,000 UNIT Q8 06/15 0600 AC (Porcine) SC Ketorolac 15 MG Q6-PRN PRN 06/14 1615 AC Tromethamine IV Ketorolac 15 MG ONCE ONE 06/14 1330 DC 06/14 Tromethamine IV 06/14 1331 1331 Ketorolac 0 .STK-MED ONE 06/14 1328 DC Tromethamine .ROUTE Losartan Potassium 50 MG DAILY 06/15 1000 AC PO Metronidazole 500 MG ONCE ONE 06/14 1400 DC 06/14 N/A 1 UNIT IV 06/14 1459 1407 Morphine Sulfate 6 MG Q2-3 HRS NEEDED.. 06/14 1615 AC IV Morphine Sulfate 4 MG Q2-3 HRS NEEDED.. 06/14 1615 AC IV Morphine Sulfate 2 MG Q2-3 HRS NEEDED.. 06/14 1615 AC IV Morphine Sulfate 0 .STK-MED ONE 06/14 1402 DC .ROUTE Morphine Sulfate 2 MG ONCE ONE 06/14 1400 DC 06/14 IV 06/14 1401 1407 Potassium Chloride 20 MEQ Q10H 06/14 1615 AC Dextrose/Sodium 1,000 ML IV Chloride Sodium Chloride 1,000 ML ONCE ONE 06/14 1445 DC 06/14 IV 06/15 0404 1510 Sodium Chloride 1,000 ML BOLUS ONE 06/14 1330 DC 06/14 IV 06/14 1429 1331 Sodium Chloride 1,000 ML BOLUS ONE 06/14 1100 DC 06/14 IV 06/14 1259 1204 Results Last 48 Hours of Labs: Laboratory Tests 06/14 06/14 1400 1345 Chemistry Lactic Acid (0.7 - 2.1 mmol/L) 1.8 Urines Urine Color (YEL,AMB,STR) YEL Urine Clarity (CLEAR) CLEAR Urine pH (5.0 - 8.0) 6.0 Ur Specific [place] (1.001 - 1.035) 1.010 Urine Protein (NEG,<30 MG/DL) NEG Urine Ketones (NEG) NEG Urine Nitrite (NEG) NEG Urine Bilirubin (NEG) NEG Urine Urobilinogen (0.1 - 1.0 EU/dl) 0.2 Ur Leukocyte Esterase (NEG) NEG Ur Microscopic EXAM NOT REQUIRED Urine Hemoglobin (NEG) NEG Urine Glucose (N MG/DL) NEG 06/14 1117 Chemistry Sodium (137 - 145 mmol/L) 139 Potassium (3.5 - 5.1 mmol/L) 3.5 Chloride (98 - 107 mmol/L) 94 L Carbon Dioxide (22 - 30 mmol/L) 29 Anion Gap (5 - 16) 16 BUN (7 - 17 mg/dL) 10 Creatinine (0.5 - 1.0 mg/dL) 0.7 Estimated GFR (>60 ml/min) > 60 BUN/Creatinine Ratio (7 - 25 %) 14.3 Glucose (65 - 99 mg/dL) 146 H Lactic Acid (0.7 - 2.1 mmol/L) 2.6 H Calcium (8.4 - 10.2 mg/dL) 8.9 Magnesium (1.6 - 2.3 mg/dL) 2.0 Total Bilirubin (0.2 - 1.3 mg/dL) 0.9 AST (14 - 36 U/L) 21 ALT (9 - 52 U/L) 29 Alkaline Phosphatase (<127 U/L) 104 Troponin I (< 0.11 ng/ml) < 0.01 Total Protein (6.3 - 8.2 g/dL) 7.3 Albumin (3.5 - 5.0 g/dL) 3.9 Globulin (1.9 - 4.2 gm/dL) 3.4 Albumin/Globulin Ratio (1.1 - 2.2 %) 1.1 Amylase (30 - 110 U/L) 52 Lipase (23 - 300 U/L) 22 L Hematology CBC w Diff NO MAN DIFF REQ WBC (4.8 - 10.8 /CUMM) 14.1 H RBC (4.20 - 5.40 /CUMM) 4.87 Hgb (12.0 - 16.0 G/DL) 12.9 Hct (37 - 47 %) 39.0 MCV (81.0 - 99.0 FL) 80.0 L MCH (27.0 - 31.0 PG) 26.5 L RDW (11.5 - 14.5 %) 14.6 H Plt Count (130 - 400 /CUMM) 250 MPV (7.4 - 10.4 FL) 9.5 Gran % (42.2 - 75.2 %) 87.5 H Lymphocytes % (20.5 - 51.1 %) 11.6 L Monocytes % (1.7 - 9.3 %) 0.6 L Eosinophils % (0 - 5 %) 0 Basophils % (0.0 - 2.0 %) 0.3 Absolute Granulocytes (1.4 - 6.5 /CUMM) 12.3 H Absolute Lymphocytes (1.2 - 3.4 /CUMM) 1.6 Absolute Monocytes (0.10 - 0.60 /CUMM) 0.1 L Absolute Eosinophils (0.0 - 0.7 /CUMM) 0 Absolute Basophils (0.0 - 0.2 /CUMM) 0 PUBS MCHC (33.0 - 37.0 G/DL) 33.1 Assessment/Plan Assessment/Plan 66yo F POD#0 s/p laparoscopic appendectomy. AVSS, patient stable. - Pain control - PRN zofran - IV abx - IVF - NPO - I/O's - SC heparin and ALPS for DVT PPX - a.m. cbc, bep Core Measures/Miscellaneous Venous Thromboembolism VTE Risk Factors: Age > 40, Obesity, Surgery VTE Contraindications: No Contraindications VTE Prophylaxis Ordered Inpt Mech & Pharm VTE Diagnosis: No VTE Type: NONE VTE Confirmed by (Test): NONE Beta Angle Is Beta Angel a Home Med? No Antibiotics Is Patient on Antibiotics? Yes
--- NOTE | 2016-06-14 23:02 | NUR ---
PATIENT ADMITTED TO FLOOR FROM PACU AT 2110. PATIENT DROWSY BUT AROUSABLE. DENIES ANY PAIN. HANSEN INTACT AND DRAINING DARK KATERIN URINE. 4 BANDAIDS TO ABDOMEN CLEAN, DRY AND INTACT. FAMILY AT BEDSIDE. CALL LIGHT WITHIN REACH.
[2016-06-14 23:53] VITALS: BP 110/62
[2016-06-15 03:01] VITALS: BP 114/68
[2016-06-15 06:25] VITALS: BP 100/50
--- NOTE | 2016-06-15 06:38 | NUR ---
NURSING NOTE: PT HYPOTENSIVE 100/50. PA JUAN CARLOS AWARE.
--- NOTE | 2016-06-15 07:29 | PN- General Surgery ---
See Addendum Subjective Subjective: The patient seen this morning postoperatively day 1. She reports some abdominal pain but is adequate control at the current time. She reports some nausea yesterday evening which she attributes to the pain medication and denies any nausea this morning. She is no complaints the current time denies any chest pain or difficulty breathing. Objective Vital Signs and I&Os Vital Signs Date Time Temp Pulse Resp B/P Pulse O2 O2 Flow FiO2 Ox Delivery Rate 06/15 0625 98.3 95 18 100/50 96 Room Air 06/15 0301 98.6 80 18 114/68 98 Nasal Cannula 06/15 0000 97 Nasal 2.0L Cannula 06/14 2353 98.7 83 18 110/62 97 Nasal Cannula 06/14 1617 100.3 108 20 99/53 96 Room Air 06/14 1447 102.1 106 18 128/58 97 Room Air 06/14 1333 103.8 06/14 1319 103.1 06/14 1254 102.3 95 18 133/63 96 Room Air 06/14 1208 102.4 06/14 1049 97.6 90 20 121/65 95 Room Air Intake & Output 06/15 0800 06/15 0000 06/14 1600 / 0800 06/14 0000 02 1600 Intake Total 624 403 9337 Output Total 450 50 Balance 570 19 5590 Intake, IV 870 926 9434 Intake, Oral 0 Output, Urine 450 50 Patient 218 lb 218 lb Weight Physical Exam: Gen.: Alert in obvious distress Skin: Warm and dry Abdomen: Softly distended, appropriate incisional tenderness, bowel sounds sluggish. Port sites are clean, dry, and intact without signs of infection. Extremities: Bilateral lower extremities are warm without calf tenderness Assessment/Plan Assessment/Plan Assessment: 66-year-old female status post laparoscopic appendectomy for perforated appendicitis postoperative day 1. The patient is progressing as expected and her pain is under adequate control. Plan: Keep nothing by mouth with IV hydration until increased signs of bowel function IV antibiotics secondary to perforation Out of bed ambulate GI and DVT prophylaxis Strict I's and O's Continue current pain regiment Core Measures/Miscellaneous Venous Thromboembolism VTE Risk Factors: Age > 40, Obesity, Surgery VTE Contraindications: No Contraindications VTE Prophylaxis Ordered Inpt Mech & Pharm VTE Diagnosis: No VTE Type: NONE VTE Confirmed by (Test): NONE Beta Angel Is Beta Angel a Home Med? No Antibiotics Is Patient on Antibiotics? Yes
--- NOTE | 2016-06-15 07:34 | PN- Medicine Consult ---
LARISSA TOTH 06/15/16 0733: Assessment/Plan Assessment/Plan Assessment: a 66-year-old woman with a past medical history of hypertension, JOSEPH on nocturnal CPAP who presented to the ED after abdominal pain 1 was diagnosed with acute appendicitis(perforated), status post surgery day 1 Problem list: * Acute appendicitis pending emergent appendectomy s/p surgery * Hypertension controlled on oral medications * Obstructive sleep apnea on nocturnal CPAP RCR I: Carries a 0.4% risk of a major cardiac event perioperatively for a low- risk surgery. Plan: * Suggest holding Anti-HTN medication for today since patient blood pressure is on the lower side * 1 set of troponin and EKG for chest tightness * Suggest Continuing antibiotic therapy given the perforation of appendicitis * Suggest continue nocturnal CPAP Problem List: 1. Hypertension 2. Acute appendicitis Subjective Subjective: I Have seen and examined the patient. Patient doesn't have any major chief complaints of mild chest tightness.still NPO on hydration. Review of Systems Constitutional: Reports: see HPI. Objective Last 24 Hrs of Vital Signs/I&O Vital Signs Date Time Temp Pulse Resp B/P Pulse O2 O2 Flow FiO2 Ox Delivery Rate 06/15 0625 98.3 95 18 100/50 96 Room Air 06/15 0301 98.6 80 18 114/68 98 Nasal Cannula 06/15 0000 97 Nasal 2.0L Cannula 06/14 2353 98.7 83 18 110/62 97 Nasal Cannula 06/14 1617 100.3 108 20 99/53 96 Room Air 06/14 1447 102.1 106 18 128/58 97 Room Air 06/14 1333 103.8 06/14 1319 103.1 06/14 1254 102.3 95 18 133/63 96 Room Air 06/14 1208 102.4 06/14 1049 97.6 90 20 121/65 95 Room Air Intake & Output 06/15 0800 04 0000 03 1600 Intake Total 638 876 0152 Output Total 450 50 Balance 823 97 6344 Intake, IV 662 129 6450 Intake, Oral 0 Output, Urine 450 50 Patient 218 lb 218 lb Weight Physical Exam General Appearance: well developed/nourished, no apparent distress, alert, awake Cardiovascular: regular rate/rhythm Respiratory: normal breath sounds, chest non-tender Extremities: normal capillary refill, no edema Current Medications: Current Medications Sig/Floridalma Start time Last Medication Dose Route Stop Time Status Admin Ceftriaxone Sodium 1,000 MG DAILY 06/15 1029 AC 06/15 IV 1202 Heparin Sodium 5,000 UNIT Q8 06/15 0600 AC 06/16 (Porcine) SC 0631 Ketorolac 15 MG .STK-MED ONE 06/15 1319 DC Tromethamine IM 06/15 1320 Ketorolac 15 MG Q6-PRN PRN 06/14 1615 AC 06/16 Tromethamine IV 0409 Losartan Potassium 50 MG DAILY 06/15 1000 AC 06/15 PO 1203 Metronidazole 500 MG IQ8 06/15 1045 06/16 N/A 1 UNIT IV 0822 Morphine Sulfate 4 MG Q2-3 HRS NEEDED.. 06/14 1615 AC IV Morphine Sulfate 2 MG Q2-3 HRS NEEDED.. 06/14 1615 AC IV Patient Medication 1 ED .STK-MED ONE 06/15 1313 DC Teaching ED 06/15 1314 Potassium Chloride 20 MEQ Q8H 06/15 0745 06/16 Dextrose/Sodium 1,000 ML IV 0029 Chloride Results Last 24 Hrs Lab/Jose A Results: n/a KE TERRELL,[facility] 06/15/16 1224: Attending MD Review Statement Attending Sign Off Attending Cosign Statement: I have: examined this patient, [facility], personally reviewd images, discussd w/resident/PA/THERMAL CUTTER HAND, discussed mgmt plan w/khalif, discussed mgmt plan w/pt, agreed w/resident/PA/THERMAL CUTTER HAND, amended to note. Other Findings: Patient seen and examined, feels okay. Currently denies any abdominal pain. Did complain of feeling some chest tightness. But states that her whole body hurts. Still nothing by mouth. HAs not passed flatus yet. vss. on exam; aox3, nad. cv; s1, s2, rrr. resp; clear but decreased bs at bases. abd; soft, mild tenderness at surgical site. BS hypoactive. ext; no edema. Laboratory Tests 06/15 06/15 06/14 1212 0618 1400 Chemistry Sodium (137 - 145 mmol/L) 139 Potassium (3.5 - 5.1 mmol/L) 4.4 Chloride (98 - 107 mmol/L) 98 Carbon Dioxide (22 - 30 mmol/L) 29 Anion Gap (5 - 16) 12 BUN (7 - 17 mg/dL) 10 Creatinine (0.5 - 1.0 mg/dL) 0.8 Estimated GFR (>60 ml/min) > 60 BUN/Creatinine Ratio (7 - 25 %) 12.5 Lactic Acid (0.7 - 2.1 mmol/L) 1.8 Troponin I Pending Hematology CBC w Diff MAN DIFF ORDERED WBC (4.8 - 10.8 /CUMM) 15.9 H RBC (4.20 - 5.40 /CUMM) 4.28 Hgb (12.0 - 16.0 G/DL) 11.5 L Hct (37 - 47 %) 34.8 L MCV (81.0 - 99.0 FL) 81.2 MCH (27.0 - 31.0 PG) 26.9 L RDW (11.5 - 14.5 %) 15.2 H Plt Count (130 - 400 /CUMM) 203 MPV (7.4 - 10.4 FL) 10.4 Gran % (42.2 - 75.2 %) 87.3 H Lymphocytes % (20.5 - 51.1 %) 9.5 L Monocytes % (1.7 - 9.3 %) 3.0 Eosinophils % (0 - 5 %) 0.1 Basophils % (0.0 - 2.0 %) 0.1 Absolute Granulocytes (1.4 - 6.5 /CUMM) 13.8 H Segmented Neutrophils (42.2 - 75.2 %) 57 Band Neutrophils (0.0 - 5.0 %) 24 H Absolute Lymphocytes (1.2 - 3.4 /CUMM) 1.5 Lymphocytes (20.5 - 51.1 %) 11 L Monocytes (1.7 - 9.3 %) 6 Absolute Monocytes (0.10 - 0.60 /CUMM) 0.5 Eosinophils (0 - 5.0 %) 1 Absolute Eosinophils (0.0 - 0.7 /CUMM) 0 Absolute Basophils (0.0 - 0.2 /CUMM) 0 Metamyelocytes (0.0 - 1.0 %) 1 Platelet Estimate (ADEQUATE) VERIFIED BY SMEAR Normocytic RBCs VERIFIED Normochromic RBCs VERIFIED PUBS MCHC (33.0 - 37.0 G/DL) 33.1 06/14 1345 Urines Urine Color (YEL,AMB,STR) YEL Urine Clarity (CLEAR) CLEAR Urine pH (5.0 - 8.0) 6.0 Ur Specific [place] (1.001 - 1.035) 1.010 Urine Protein (NEG,<30 MG/DL) NEG Urine Ketones (NEG) NEG Urine Nitrite (NEG) NEG Urine Bilirubin (NEG) NEG Urine Urobilinogen (0.1 - 1.0 EU/dl) 0.2 Ur Leukocyte Esterase (NEG) NEG Ur Microscopic EXAM NOT REQUIRED Urine Hemoglobin (NEG) NEG Urine Glucose (N MG/DL) NEG Assessment and recommendations. 66 yo female with h/o HTN & JOSEPH (on CPAP) who was admitted with acute appendicitis with rupture and peritonitis status post laparoscopic appendectomy. Postop day #1 today. Postop care per surgery. This morning blood pressure was low but now it is okay. Patient has received her losartan. Still nothing by mouth. Still on IV fluids. Continue to monitor electrolytes and replete as needed. Will recommend continuing antibiotics as it was ruptured appendicitis. Patient needs adequate pain management and she seems to have adequate control of pain currently. For DVT prophylaxis patient has been started on heparin subcutaneous. Thank you very much for allowing us to participate in the care of this patient, will follow along with you.
[2016-06-15 08:10] LABS: ABSOLUTE BASOPHIL COUNT 0 /CUMM (0.0-0.2); ABSOLUTE EOSINOPHIL COUNT 0 /CUMM (0.0-0.7); ABSOLUTE GRANULOCYTE CT 13.8 /CUMM (1.4-6.5); ABSOLUTE LYMPH COUNT 1.5 /CUMM (1.2-3.4); ABSOLUTE MONOCYTE COUNT 0.5 /CUMM (0.10-0.60); BASOPHIL % 0.1 % (0.0-2.0); EOSINOPHIL % 0.1 % (0-5); GRANULOCYTE % 87.3 % (42.2-75.2); HEMATOCRIT 34.8 % (37-47); MEAN CORPUSCULAR HGB 26.9 PG (27.0-31.0); MEAN CORPUSCULAR HGB CONC 33.1 G/DL (33.0-37.0); MEAN CORPUSCULAR VOLUME 81.2 FL (81.0-99.0); MEAN PLATELET VOLUME 10.4 FL (7.4-10.4); PLATELET COUNT 203 /CUMM (130-400); RBC DISTRIBUTION WIDTH 15.2 % (11.5-14.5); RED BLOOD CELL CT 4.28 /CUMM (4.20-5.40); WHITE BLOOD CELL COUNT 15.9 /CUMM (4.8-10.8)
--- NOTE | 2016-06-15 11:00 | NUR ---
PT CURRENTLY WEARING 2L, SATURATING 96%. LUNGS ARE DIMINISHED. IST GIVEN AND TEACHING DONE, PT DEMONSTRATES ABILITY. ATTEMPTED TO WEAN OXYGEN PT IS NOT HOME DEPENDENT. REMOVED, AFTER APPROXIMATELY 10 MINUTES PT C/O SHORTNESS OF BREATH. SATURATION RE-CHECKED, 83%. PLACED BACK ON 2L, SATURATIONS IMMEDIATELY INCREASED TO 96%. PT ENCOURAGED TO USE IST FREQUENTLY. PT ALSO EDUCATED ON IMPORTANCE OF GETTING OUT OF BED, AGREEABLE TO WALKING AND SITTING IN CHAIR. REPORTED TO FRANKIE BERNAL. WILL MONITOR.
[2016-06-15 14:44] VITALS: BP 120/70
--- NOTE | 2016-06-15 16:20 | NUR ---
TEMPERATURE OF 101.8 DOCUMENTED BY MST. PT RE-CHECKED ONE HOUR LATER, 99.2. REPORTED TO FRANKIE BERNAL. WILL MONITOR.
--- NOTE | 2016-06-15 20:06 | NUR ---
pt voided 200 cc of dark shelli urine/scant amt of blood, +flatus, informed surgical pa at this time, orders to remain NPO and re-eval in am
[2016-06-15 22:13] VITALS: BP 110/60
[2016-06-16 06:40] VITALS: BP 112/66
--- NOTE | 2016-06-16 07:55 | PN- General Surgery ---
Subjective Subjective: NAEO. Patient without new c/o. Pain improved. She states she had difficulty sleeping last night after feeling difficulty breathing that she attributes to excessive belching and flatus. Per RN patient is on CPAP at home and did not have it ordered. Patient feels better though her abdomen still feels distended. She does not feel hungry at this time. No nausea/emesis. No bowel movements. Has been OOB to bathroom. Denies CP/SOB at this time. Objective Vital Signs and I&Os Vital Signs Date Time Temp Pulse Resp B/P Pulse O2 O2 Flow FiO2 Ox Delivery Rate 06/16 0640 98.6 87 18 112/66 96 Nasal Cannula 06/15 2213 100.3 88 20 110/60 98 Nasal 2.0L Cannula 06/15 1629 99.2 06/15 1444 101.8 98 19 120/70 95 06/15 1203 99 132/70 06/15 0800 Nasal 2.0L Cannula Intake & Output 06/16 0800 06/16 0000 06/15 1600 06/15 0800 06/15 0000 06/14 1600 Intake Total 975 1000 850 045 061 0742 Output Total 100 200 200 450 50 Balance 875 800 650 401 85 3286 Intake, IV 975 1000 800 762 713 3868 Intake, Oral 50 0 Output, Urine 100 200 200 450 50 Patient 218 lb 218 lb Weight Physical Exam: General: NAD, comfortable, A&Ox3 Chest: CTAB. RRR. Abdomen: soft, +distended. Appropriately TTP. +Bowel sounds x4 quadrants. Incisions c/d/i. Ext: No calve swelling/TTP, neurovascularly intact bilateral lower extremities Current Medications: Current Medications Sig/Floridalma Start time Last Medication Dose Route Stop Time Status Admin Ceftriaxone Sodium 1,000 MG DAILY 06/15 1029 AC 06/15 IV 1202 Heparin Sodium 5,000 UNIT Q8 06/15 0600 AC 06/16 (Porcine) SC 0631 Ketorolac 15 MG .STK-MED ONE 06/15 1319 DC Tromethamine IM 06/15 1320 Ketorolac 15 MG Q6-PRN PRN 06/14 1615 AC 06/16 Tromethamine IV 0409 Losartan Potassium 50 MG DAILY 06/15 1000 AC 06/15 PO 1203 Metronidazole 500 MG IQ8 06/15 1045 AC 06/16 N/A 1 UNIT IV 0030 Morphine Sulfate 4 MG Q2-3 HRS NEEDED.. 06/14 1615 AC IV Morphine Sulfate 2 MG Q2-3 HRS NEEDED.. 06/14 1615 AC IV Patient Medication 1 ED .STK-MED ONE 06/15 1313 DC Teaching ED 06/15 1314 Potassium Chloride 20 MEQ Q8H 06/15 0745 AC 06/16 Dextrose/Sodium 1,000 ML IV 0029 Chloride Results Last 48 Hours of Labs: Laboratory Tests 06/16 06/15 06/15 0645 1212 0618 Chemistry Sodium (137 - 145 mmol/L) 139 139 Potassium (3.5 - 5.1 mmol/L) 3.8 4.4 Chloride (98 - 107 mmol/L) 104 98 Carbon Dioxide (22 - 30 mmol/L) 25 29 Anion Gap (5 - 16) 10 12 BUN (7 - 17 mg/dL) 15 10 Creatinine (0.5 - 1.0 mg/dL) 0.8 0.8 Estimated GFR (>60 ml/min) > 60 > 60 BUN/Creatinine Ratio (7 - 25 %) 18.8 12.5 Troponin I (< 0.11 ng/ml) < 0.01 Hematology CBC w Diff Pending MAN DIFF ORDERED WBC (4.8 - 10.8 /CUMM) Pending 15.9 H RBC (4.20 - 5.40 /CUMM) Pending 4.28 Hgb (12.0 - 16.0 G/DL) Pending 11.5 L Hct (37 - 47 %) Pending 34.8 L MCV (81.0 - 99.0 FL) Pending 81.2 MCH (27.0 - 31.0 PG) Pending 26.9 L RDW (11.5 - 14.5 %) Pending 15.2 H Plt Count (130 - 400 /CUMM) Pending 203 MPV (7.4 - 10.4 FL) Pending 10.4 Gran % (42.2 - 75.2 %) 87.3 H Lymphocytes % (20.5 - 51.1 %) 9.5 L Monocytes % (1.7 - 9.3 %) 3.0 Eosinophils % (0 - 5 %) 0.1 Basophils % (0.0 - 2.0 %) 0.1 Absolute Granulocytes (1.4 - 6.5 /CUMM) 13.8 H Segmented Neutrophils (42.2 - 75.2 %) 57 Band Neutrophils (0.0 - 5.0 %) 24 H Absolute Lymphocytes (1.2 - 3.4 /CUMM) 1.5 Lymphocytes (20.5 - 51.1 %) 11 L Monocytes (1.7 - 9.3 %) 6 Absolute Monocytes (0.10 - 0.60 /CUMM) 0.5 Eosinophils (0 - 5.0 %) 1 Absolute Eosinophils (0.0 - 0.7 /CUMM) 0 Absolute Basophils (0.0 - 0.2 /CUMM) 0 Metamyelocytes (0.0 - 1.0 %) 1 Platelet Estimate (ADEQUATE) VERIFIED BY SMEAR Normocytic RBCs VERIFIED Normochromic RBCs VERIFIED PUBS MCHC (33.0 - 37.0 G/DL) Pending 33.1 06/14 06/14 06/14 1400 1345 1202 Chemistry Lactic Acid (0.7 - 2.1 mmol/L) 1.8 Serology Virus Culture Pending Urines Urine Color (YEL,AMB,STR) YEL Urine Clarity (CLEAR) CLEAR Urine pH (5.0 - 8.0) 6.0 Ur Specific [place] (1.001 - 1.035) 1.010 Urine Protein (NEG,<30 MG/DL) NEG Urine Ketones (NEG) NEG Urine Nitrite (NEG) NEG Urine Bilirubin (NEG) NEG Urine Urobilinogen (0.1 - 1.0 EU/dl) 0.2 Ur Leukocyte Esterase (NEG) NEG Ur Microscopic EXAM NOT REQUIRED Urine Hemoglobin (NEG) NEG Urine Glucose (N MG/DL) NEG 06/14 1117 Chemistry Sodium (137 - 145 mmol/L) 139 Potassium (3.5 - 5.1 mmol/L) 3.5 Chloride (98 - 107 mmol/L) 94 L Carbon Dioxide (22 - 30 mmol/L) 29 Anion Gap (5 - 16) 16 BUN (7 - 17 mg/dL) 10 Creatinine (0.5 - 1.0 mg/dL) 0.7 Estimated GFR (>60 ml/min) > 60 BUN/Creatinine Ratio (7 - 25 %) 14.3 Glucose (65 - 99 mg/dL) 146 H Lactic Acid (0.7 - 2.1 mmol/L) 2.6 H Calcium (8.4 - 10.2 mg/dL) 8.9 Magnesium (1.6 - 2.3 mg/dL) 2.0 Total Bilirubin (0.2 - 1.3 mg/dL) 0.9 AST (14 - 36 U/L) 21 ALT (9 - 52 U/L) 29 Alkaline Phosphatase (<127 U/L) 104 Troponin I (< 0.11 ng/ml) < 0.01 Total Protein (6.3 - 8.2 g/dL) 7.3 Albumin (3.5 - 5.0 g/dL) 3.9 Globulin (1.9 - 4.2 gm/dL) 3.4 Albumin/Globulin Ratio (1.1 - 2.2 %) 1.1 Amylase (30 - 110 U/L) 52 Lipase (23 - 300 U/L) 22 L Hematology CBC w Diff NO MAN DIFF REQ WBC (4.8 - 10.8 /CUMM) 14.1 H RBC (4.20 - 5.40 /CUMM) 4.87 Hgb (12.0 - 16.0 G/DL) 12.9 Hct (37 - 47 %) 39.0 MCV (81.0 - 99.0 FL) 80.0 L MCH (27.0 - 31.0 PG) 26.5 L RDW (11.5 - 14.5 %) 14.6 H Plt Count (130 - 400 /CUMM) 250 MPV (7.4 - 10.4 FL) 9.5 Gran % (42.2 - 75.2 %) 87.5 H Lymphocytes % (20.5 - 51.1 %) 11.6 L Monocytes % (1.7 - 9.3 %) 0.6 L Eosinophils % (0 - 5 %) 0 Basophils % (0.0 - 2.0 %) 0.3 Absolute Granulocytes (1.4 - 6.5 /CUMM) 12.3 H Absolute Lymphocytes (1.2 - 3.4 /CUMM) 1.6 Absolute Monocytes (0.10 - 0.60 /CUMM) 0.1 L Absolute Eosinophils (0.0 - 0.7 /CUMM) 0 Absolute Basophils (0.0 - 0.2 /CUMM) 0 PUBS MCHC (33.0 - 37.0 G/DL) 33.1 Assessment/Plan Assessment/Plan 66yo F POD#2 s/p laparoscopic appendectomy. AVSS, patient stable. - Pain control - PRN zofran - IV abx - continue IVF - continue sips of clears. Will reassess this after noon and possibly advance to clear liquid diet. - I/O's - SC heparin and ALPS for DVT PPX - f/u a.m. cbc, bep - TRC for CPAP - will d/w attending Core Measures/Miscellaneous Venous Thromboembolism VTE Risk Factors: Age > 40, Obesity, Surgery VTE Contraindications: No Contraindications VTE Prophylaxis Ordered Inpt Mech & Pharm VTE Diagnosis: No VTE Type: NONE VTE Confirmed by (Test): NONE Beta Angel Is Beta Angel a Home Med? No Antibiotics Is Patient on Antibiotics? Yes
[2016-06-16 08:05] LABS: ABSOLUTE BASOPHIL COUNT 0 /CUMM (0.0-0.2); ABSOLUTE EOSINOPHIL COUNT 0 /CUMM (0.0-0.7); ABSOLUTE GRANULOCYTE CT 13.9 /CUMM (1.4-6.5); ABSOLUTE LYMPH COUNT 1.3 /CUMM (1.2-3.4); ABSOLUTE MONOCYTE COUNT 0.4 /CUMM (0.10-0.60); BASOPHIL % 0.1 % (0.0-2.0); EOSINOPHIL % 0.2 % (0-5); GRANULOCYTE % 88.7 % (42.2-75.2); MEAN CORPUSCULAR HGB CONC 33.2 G/DL (33.0-37.0); MEAN CORPUSCULAR VOLUME 81.4 FL (81.0-99.0); MEAN PLATELET VOLUME 10.1 FL (7.4-10.4); PLATELET COUNT 221 /CUMM (130-400); RBC DISTRIBUTION WIDTH 14.8 % (11.5-14.5); RED BLOOD CELL CT 4.06 /CUMM (4.20-5.40); WHITE BLOOD CELL COUNT 15.7 /CUMM (4.8-10.8)
--- NOTE | 2016-06-16 08:48 | PN- Medicine Consult ---
CHRISTIN LOJA 06/16/16 0848: Assessment/Plan Assessment/Plan Assessment: Patient is a 66-year-old woman with a past medical history of hypertension, JOSEPH on nocturnal CPAP who presented to the ED after abdominal pain. She was diagnosed with acute appendicitis which was perforated Problem list 1. Appendicitis s//p surgery 2. Hypertension controlled on oral medications 3. Obstructive sleep apnea on nocturnal CPAP Plan: -Continue antibiotics Ceftriaxone/Metronidazol since apendix was ruptured. Monitor labs -Blood pressure stable, can continue losartan and monitor -Can start Melatonin at bedtime for insomnia -Pain adequately contorlled continue same regimen and taper if necessary - DVT ppx SC heprin Problem List: 1. Acute appendicitis 2. Hypertension Subjective Subjective: Patient reports that she had some difficulty sleeping last night and due to her positioning, she couldn't breath properly which improved after readjustment. She also had a fever of 100.3 last night, afebrile this am. Continues to be on antibiotics. Blood pressure has been stable on losartan. No nausea/vomiting. Pain well controlled. Review of Systems Constitutional: Reports: no symptoms, see HPI. Objective Last 24 Hrs of Vital Signs/I&O Vital Signs Date Time Temp Pulse Resp B/P Pulse O2 O2 Flow FiO2 Ox Delivery Rate 06/16 0800 96 Nasal 2.0L Cannula 06/16 0640 98.6 87 18 112/66 96 Nasal Cannula 06/15 2213 100.3 88 20 110/60 98 Nasal 2.0L Cannula 06/15 1629 99.2 06/15 1444 101.8 98 19 120/70 95 06/15 1203 99 132/70 Intake & Output 06/16 1600 06/16 0800 06/16 0000 Intake Total 975 1000 Output Total 100 200 Balance 875 800 Intake, IV 975 1000 Output, Urine 100 200 Physical Exam General Appearance: no apparent distress, awake Head: normal appearance Neck: normal inspection, supple Cardiovascular: regular rate/rhythm Respiratory: normal breath sounds, no respiratory distress Abdomen: normal bowel sounds, soft, distention, surgical incision site clean Extremities: normal inspection, normal capillary refill Current Medications: Current Medications Sig/Floridalma Start time Last Medication Dose Route Stop Time Status Admin Ceftriaxone Sodium 1,000 MG DAILY 06/15 1029 AC 06/15 IV 1202 Heparin Sodium 5,000 UNIT Q8 06/15 0600 AC 06/16 (Porcine) SC 0631 Ketorolac 15 MG .STK-MED ONE 06/15 1319 DC Tromethamine IM 06/15 1320 Ketorolac 15 MG Q6-PRN PRN 06/14 1615 06/16 Tromethamine IV 0409 Losartan Potassium 50 MG DAILY 06/15 1000 AC 06/15 PO 1203 Metronidazole 500 MG IQ8 06/15 1045 06/16 N/A 1 UNIT IV 0822 Morphine Sulfate 4 MG Q2-3 HRS NEEDED.. 06/14 1615 IV Morphine Sulfate 2 MG Q2-3 HRS NEEDED.. 06/14 1615 IV Patient Medication 1 ED .STK-MED ONE 06/15 1313 DC Teaching ED 06/15 1314 Potassium Chloride 20 MEQ Q8H 06/15 0745 06/16 Dextrose/Sodium 1,000 ML IV 0029 Chloride Results Last 24 Hrs Lab/Jose A Results: Laboratory Tests 06/16/16 0645: Anion Gap 10, Estimated GFR > 60, BUN/Creatinine Ratio 18.8, CBC w Diff Pending, WBC Pending, RBC Pending, Hgb Pending, Hct Pending, MCV Pending, MCH Pending, RDW Pending, Plt Count Pending, MPV Pending, Gran % Pending, Lymphocytes % Pending, Monocytes % Pending, Eosinophils % Pending, Basophils % Pending, Absolute Granulocytes Pending, Absolute Lymphocytes Pending, Absolute Monocytes Pending, Absolute Eosinophils Pending, Absolute Basophils Pending, PUBS MCHC Pending 06/15/16 1212: Troponin I < 0.01 KE TERRELL,[facility] 06/16/16 1316: Attending MD Review Statement Attending Sign Off Attending Cosign Statement: I have: examined this patient, reviewed [facility] EMR data, personally reviewd images, discussd w/resident/PA/SEAM SEWER, discussed mgmt plan w/pt, agreed w/resident/ PA/SEAM SEWER, amended to note. Other Findings: Patient seen and examined, not feeling so well. Complains of a lot of bloating as well as gas. Still not able to pass black this point and this morning. Was complaining of feeling very fatigued and tired secondary to lack of sleep last night. Vital Signs Date Time Temp Pulse Resp B/P Pulse O2 O2 Flow FiO2 Ox Delivery Rate 06/16 0958 104/60 06/16 0800 96 Nasal 2.0L Cannula 06/16 0640 98.6 87 18 112/66 96 Nasal Cannula 06/15 2213 100.3 88 20 110/60 98 Nasal 2.0L Cannula 06/15 1629 99.2 06/15 1444 101.8 98 19 120/70 95 on exam; aox3, nad. cv; s1,s2, rrr. resp; decrsead bs at bases. abd; soft, non tender bs hypoactive. ext; no edema Laboratory Tests 06/16 644 Chemistry Sodium (137 - 145 mmol/L) 139 Potassium (3.5 - 5.1 mmol/L) 3.8 Chloride (98 - 107 mmol/L) 104 Carbon Dioxide (22 - 30 mmol/L) 25 Anion Gap (5 - 16) 10 BUN (7 - 17 mg/dL) 15 Creatinine (0.5 - 1.0 mg/dL) 0.8 Estimated GFR (>60 ml/min) > 60 BUN/Creatinine Ratio (7 - 25 %) 18.8 Hematology CBC w Diff MAN DIFF ORDERED WBC (4.8 - 10.8 /CUMM) 15.7 H RBC (4.20 - 5.40 /CUMM) 4.06 L Hgb (12.0 - 16.0 G/DL) 11.0 L Hct (37 - 47 %) 33.0 L MCV (81.0 - 99.0 FL) 81.4 MCH (27.0 - 31.0 PG) 27.0 RDW (11.5 - 14.5 %) 14.8 H Plt Count (130 - 400 /CUMM) 221 MPV (7.4 - 10.4 FL) 10.1 Gran % (42.2 - 75.2 %) 88.7 H Lymphocytes % (20.5 - 51.1 %) 8.2 L Monocytes % (1.7 - 9.3 %) 2.8 Eosinophils % (0 - 5 %) 0.2 Basophils % (0.0 - 2.0 %) 0.1 Absolute Granulocytes (1.4 - 6.5 /CUMM) 13.9 H Segmented Neutrophils (42.2 - 75.2 %) 80 H Band Neutrophils (0.0 - 5.0 %) 10 H Absolute Lymphocytes (1.2 - 3.4 /CUMM) 1.3 Lymphocytes (20.5 - 51.1 %) 6 L Monocytes (1.7 - 9.3 %) 4 Absolute Monocytes (0.10 - 0.60 /CUMM) 0.4 Absolute Eosinophils (0.0 - 0.7 /CUMM) 0 Absolute Basophils (0.0 - 0.2 /CUMM) 0 Platelet Estimate (ADEQUATE) ADEQUATE Normocytic RBCs VERIFIED Normochromic RBCs VERIFIED PUBS MCHC (33.0 - 37.0 G/DL) 33.2 Assessment and recommendations. 66 yo female with h/o HTN & JOSEPH (on CPAP) who was admitted with acute appendicitis with rupture and peritonitis status post laparoscopic appendectomy. Postop day #2 today. Postop care per surgery. Patient will be started on clear liquid diet as per surgery. Okay to resume outpatient hydrochlorothiazide at her home dose. Patient will be started on meropenem per surgery but the Pseudomonas is also sensitive to Cipro. Might consider switching to oral Cipro and Flagyl at the time of discharge. Patient is on morphine and Toradol for pain management. DVT prophylaxis: Heparin subcutaneous. Thank you will follow along with you.
--- NOTE | 2016-06-16 09:01 | Patient Discharge Instructions ---
Discharge Instructions General Discharge Information You were seen/treated for: acute appendicitis (perforated) You had these procedures: 06/15/15 laparoscopic appendectomy with washout Watch for these problems: Redness, swelling, fever, purulent drainage, signs of infection. Excessive bleeding. Uncontrolled pain. Inability to tolerate diet. Chest pain or shortness of breath. Do not soak the wound: Yes No bath, but you may shower: Yes Other wound care: Daily dressing changes or as needed Special Instructions: You will be on antibiotics (2 separate ones) for 1 more week after discharge. Diet Continue normal diet: Yes Activity Activity Self Limited: Yes Pounds, do NOT lift more than: 15 Other activity limits: No strenuous activity or exercise Acute Coronary Syndrome Inclusion Criteria At DC or during hospital stay patient has or had the following: ACS DIAGNOSIS No Discharge Core Measures Meds if any: Prescribed or Continued at Discharge Meds if any: NOT Prescribed or Continued at Discharge Congestive Heart Failure Inclusion Criteria At DC or during hospital stay patient has or had the following: CHF DIAGNOSIS No Discharge Core Measures Meds if any: Prescribed or Continued at Discharge Meds if any: NOT Prescribed or Continued at Discharge Cerebrovascular accident Inclusion Criteria At DC or during hospital stay patient has or had the following: CVA/TIA Diagnosis No Discharge Core Measures Meds if any: Prescribed or Continued at Discharge Meds if any: NOT Prescribed or Continued at Discharge Venous thromboembolism Inclusion Criteria VTE Diagnosis No VTE Type NONE VTE Confirmed by (Test) NONE Discharge Core Measures - Per Current guidelines, there needs to be overlap - treatment for the first 5 days of Warfarin therapy. - If discharged on Warfarin prior to 5 days of - overlap therapy, the patient will need to be - assessed for post discharge needs including - *Post discharge parental anticoagulation - *Warfarin and/or parental anticoagulation education - *Follow up date to check INR post discharge At least 5 days overlap therapy as Inpatient No Meds if any: Prescribed or Continued at Discharge Note: Overlap Therapy is Warfarin and Anticoagulant Meds if any: NOT Prescribed or Continued at Discharge
--- NOTE | 2016-06-16 13:09 | PN- General Surgery ---
Surgical Brief Attending Note Brief Attending Note: ILEUS RESOLVING. OK FOR CLEARS. DECREASE IVF. RESTART LASIX ORDERED OUTPT. RESISTANT ECOLI AND PSEUDOMONAS FROM CULTURE. BEGIN MEROPENEM. HIGH RISK FOR PERITONEAL ABSCESS.
[2016-06-16 15:04] VITALS: BP 122/70
[2016-06-16 23:04] VITALS: BP 128/64
[2016-06-17 06:00] VITALS: BP 112/64
--- NOTE | 2016-06-17 07:46 | PN- Medicine Consult ---
CHRISTIN LOJA 06/17/16 0746: Assessment/Plan Assessment/Plan Assessment: Patient is a 66-year-old woman with a past medical history of hypertension, JOSEPH on nocturnal CPAP who presented to the ED after abdominal pain. She was diagnosed with acute appendicitis which was perforated Problem list 1. Appendicitis s//p surgery 2. Hypertension controlled on oral medications 3. Obstructive sleep apnea on nocturnal CPAP Plan: -Patient switched to Meropenem yesterday. He has grown pseudomonas in the past which was senstitive to Ciprofloxacin, can switch the patient to Ciprofloxacin and flagyl upon discharge -Blood pressure stable, can continue losartan and restart HCTZ -Consider Melatonin at bedtime for insomnia -Pain adequately contorlled continue same regimen and taper if necessary - DVT ppx SC heprin Subjective Subjective: Patient seen and examined. Syable from medical perspective Review of Systems Constitutional: Reports: see HPI. Objective Last 24 Hrs of Vital Signs/I&O Vital Signs Date Time Temp Pulse Resp B/P Pulse O2 O2 Flow FiO2 Ox Delivery Rate 06/17 06 97.9 79 20 112/64 95 Nasal Cannula 06/17 0104 84 99 06/17 0000 Nasal 2.0L Cannula 06/16 2307 96 06/16 2304 98.4 102 20 128/64 97 Nasal Cannula 06/16 1600 Nasal 2.0L Cannula 06/16 1504 98.5 98 20 122/70 99 Nasal 2.0L Cannula 06/16 1421 Nasal 2.0L Cannula 06/16 0958 104/60 06/16 0800 96 Nasal 2.0L Cannula Intake & Output 06/17 0800 06/17 0000 06/16 1600 Intake Total 440 1110 Output Total 200 150 250 Balance -200 290 860 Intake, IV 200 700 Intake, Oral 240 410 Number 3 Bowel Movements Output, Urine 200 150 250 Physical Exam General Appearance: well developed/nourished, no apparent distress, alert, awake Head: atraumatic, normal appearance Neck: normal inspection Cardiovascular: regular rate/rhythm Respiratory: normal breath sounds Current Medications: as per chart Results Last 24 Hrs Lab/Jose A Results: as above ANTELMO DEMPSEY MD 06/17/16 1153: Attending MD Review Statement Attending Sign Off Attending Cosign Statement: I have: examined this patient, reviewed [facility] EMR data, personally reviewd images, discussd w/resident/PA/DIRECTOR OF PRECLINICAL RESEARCH, discussed mgmt plan w/khalif, discussed mgmt plan w/pt, agreed w/resident/PA/DIRECTOR OF PRECLINICAL RESEARCH, amended to note. Other Findings: Patient seen and examined, feeling much better today. Had a good night sleep last night. Patient's diet has been advanced to full liquids. She is passing flatus and complains of less abdominal pain today. Vital Signs Date Time Temp Pulse Resp B/P Pulse O2 O2 Flow FiO2 Ox Delivery Rate 06/17 0853 89 112/60 06/17 599 97.9 79 20 112/64 95 Nasal Cannula 06/17 0104 84 99 06/17 0000 Nasal 2.0L Cannula 06/16 2307 96 06/16 2304 98.4 102 20 128/64 97 Nasal Cannula 06/16 1600 Nasal 2.0L Cannula 06/16 1504 98.5 98 20 122/70 99 Nasal 2.0L Cannula 06/16 1421 Nasal 2.0L Cannula on exam; aox3, nad. cv; s1,s2, rrr. resp; clear. abd; soft, mildly tender at surgical site, bs+ ext; no edema. Laboratory Tests 06/17 599 Chemistry Sodium (137 - 145 mmol/L) 140 Potassium (3.5 - 5.1 mmol/L) 3.6 Chloride (98 - 107 mmol/L) 105 Carbon Dioxide (22 - 30 mmol/L) 24 Anion Gap (5 - 16) 11 BUN (7 - 17 mg/dL) 14 Creatinine (0.5 - 1.0 mg/dL) 0.7 Estimated GFR (>60 ml/min) > 60 BUN/Creatinine Ratio (7 - 25 %) 20.0 Magnesium (1.6 - 2.3 mg/dL) 2.0 Hematology CBC w Diff NO MAN DIFF REQ WBC (4.8 - 10.8 /CUMM) 11.3 H RBC (4.20 - 5.40 /CUMM) 3.61 L Hgb (12.0 - 16.0 G/DL) 9.8 L Hct (37 - 47 %) 29.0 L MCV (81.0 - 99.0 FL) 80.5 L MCH (27.0 - 31.0 PG) 27.0 RDW (11.5 - 14.5 %) 15.1 H Plt Count (130 - 400 /CUMM) 216 MPV (7.4 - 10.4 FL) 9.9 Gran % (42.2 - 75.2 %) 81.6 H Lymphocytes % (20.5 - 51.1 %) 11.4 L Monocytes % (1.7 - 9.3 %) 5.5 Eosinophils % (0 - 5 %) 1.1 Basophils % (0.0 - 2.0 %) 0.4 Absolute Granulocytes (1.4 - 6.5 /CUMM) 9.2 H Absolute Lymphocytes (1.2 - 3.4 /CUMM) 1.3 Absolute Monocytes (0.10 - 0.60 /CUMM) 0.6 Absolute Eosinophils (0.0 - 0.7 /CUMM) 0.1 Absolute Basophils (0.0 - 0.2 /CUMM) 0 PUBS MCHC (33.0 - 37.0 G/DL) 33.6 Assessment and recommendations. 66 yo female with h/o HTN & JOSEPH (on CPAP) who was admitted with acute appendicitis with rupture and peritonitis status post laparoscopic appendectomy. Postop day #3 today. Overall improving. Is able to possibly some bowel sounds have returned. Diet has been advanced to full liquids. Advance diet per surgery. Patient has been started back on her home medications for hypertension. Blood pressure remained stable. Currently on meropenem and plan is to invert her to by mouth Cipro and Flagyl upon discharge as per Dr. Caal. Medical issues are stable therefore medical team will sign off. Please call with any questions.
[2016-06-17 07:58] LABS: ABSOLUTE BASOPHIL COUNT 0 /CUMM (0.0-0.2); ABSOLUTE EOSINOPHIL COUNT 0.1 /CUMM (0.0-0.7); ABSOLUTE GRANULOCYTE CT 9.2 /CUMM (1.4-6.5); ABSOLUTE LYMPH COUNT 1.3 /CUMM (1.2-3.4); ABSOLUTE MONOCYTE COUNT 0.6 /CUMM (0.10-0.60); BASOPHIL % 0.4 % (0.0-2.0); EOSINOPHIL % 1.1 % (0-5); GRANULOCYTE % 81.6 % (42.2-75.2); MEAN CORPUSCULAR HGB CONC 33.6 G/DL (33.0-37.0); MEAN CORPUSCULAR VOLUME 80.5 FL (81.0-99.0); MEAN PLATELET VOLUME 9.9 FL (7.4-10.4); PLATELET COUNT 216 /CUMM (130-400); RBC DISTRIBUTION WIDTH 15.1 % (11.5-14.5); RED BLOOD CELL CT 3.61 /CUMM (4.20-5.40); WHITE BLOOD CELL COUNT 11.3 /CUMM (4.8-10.8)
--- NOTE | 2016-06-17 08:03 | PN- General Surgery ---
See Addendum Subjective Subjective: POD#3 S/P LAP APPY, PERFORATED FELLING MUCH BETTER TODAY LESS BLOATING DENIES CP, SOB, NO N+V WITH CLEAR DIET ABX CHANGED YESTERDAY TO MEROPENEM +BM Objective Vital Signs and I&Os Vital Signs Date Time Temp Pulse Resp B/P Pulse O2 O2 Flow FiO2 Ox Delivery Rate 06/17 06 97.9 79 20 112/64 95 Nasal Cannula 06/17 0104 84 99 06/17 0000 Nasal 2.0L Cannula 06/16 2307 96 06/16 2304 98.4 102 20 128/64 97 Nasal Cannula 06/16 1600 Nasal 2.0L Cannula 06/16 1504 98.5 98 20 122/70 99 Nasal 2.0L Cannula 06/16 1421 Nasal 2.0L Cannula 06/16 0958 104/60 Intake & Output 06/17 1600 06/17 0800 06/17 0000 06/16 1600 06/16 0800 06/16 0000 Intake Total 473 291 3788 975 1000 Output Total 200 150 250 100 200 Balance 440 290 860 875 800 Intake, IV 400 200 437 762 6810 Intake, Oral 240 240 410 Number 3 Bowel Movements Output, Urine 200 150 250 100 200 Physical Exam: CV: RRR LUNGS: CLEAR ABD: SOFT, NO GUARDING TO PALP +BS, DRSGS DRY EXT: WARM, DISTAL CMS INTACT Assessment/Plan Assessment/Plan SURGICAL IMPROVING PLAN F/U AM LABS CONT IV ABX ADVANCE DIET TO FULL LIQUID WILL D/W ATTENDING Core Measures/Miscellaneous Venous Thromboembolism VTE Risk Factors: Age > 40, Obesity, Surgery VTE Contraindications: No Contraindications VTE Prophylaxis Ordered Inpt Mech & Pharm VTE Diagnosis: No VTE Type: NONE VTE Confirmed by (Test): NONE Beta Angel Is Beta Angel a Home Med? No Antibiotics Is Patient on Antibiotics? Yes
[2016-06-17 13:41] VITALS: BP 130/80
[2016-06-17] MEDS ORDERED: FLAGYL500 MG PO (14:29)
[2016-06-17] MEDS ORDERED: CIPRO500 M1 PO (14:29)
--- NOTE | 2016-06-17 17:41 | NUR ---
ALERT AND ORIENTED X 3. VITAL SIGNS STABLE. ON ROOM AIR. DRESSINGS X 4 ARE CLEAN, DRY AND INTACT. NO DISCOMFORT NOTED AT THIS TIME. PATIENT RESTING COMFORTABLY. WILL CONTINUE TO MONITOR
[2016-06-17 22:18] VITALS: BP 140/70
[2016-06-18 06:00] VITALS: BP 118/72
[2016-06-18 08:37] VITALS: BP 118/72
--- NOTE | 2016-06-18 10:45 | PN- General Surgery ---
See Addendum Subjective Subjective: POD #4 s/p laparoscopic appendectomy for perforated appendicitis. Resting in chair. No N/V, F/C, CP/SOB. Ambulating and voiding well. Objective Vital Signs and I&Os Vital Signs Date Time Temp Pulse Resp B/P Pulse O2 O2 Flow FiO2 Ox Delivery Rate 06/18 0837 97.7 83 18 118/72 06/18 0600 97.7 83 18 118/72 95 Room Air 06/18 0022 79 98 06/17 2218 99.9 91 20 140/70 91 Room Air 06/17 1341 97.5 75 20 130/80 97 Room Air Intake & Output 06/18 1600 06/18 0800 06/18 0000 06/17 1600 06/17 0800 06/17 0000 Intake Total 600 960 600 640 440 Output Total 250 400 300 200 150 Balance 350 560 300 440 290 Intake, IV 400 200 Intake, Oral 600 960 600 240 240 Number 1 Bowel Movements Output, Urine 250 400 300 200 150 Physical Exam: Gen: AAOx3 in NAD Cor: S1+S2+ Lungs: CTA divya Abd: soft, NT, ND, +BS x4. Incisional dressings removed. Incisions C/D/I. no drainage or erythema noted. Mild ecchymosis surrounding incisions. Ext: no edema or calf tenderness to divya lower extremities. Results Last 48 Hours of Labs: Laboratory Tests 06/17 0600 Chemistry Sodium (137 - 145 mmol/L) 140 Potassium (3.5 - 5.1 mmol/L) 3.6 Chloride (98 - 107 mmol/L) 105 Carbon Dioxide (22 - 30 mmol/L) 24 Anion Gap (5 - 16) 11 BUN (7 - 17 mg/dL) 14 Creatinine (0.5 - 1.0 mg/dL) 0.7 Estimated GFR (>60 ml/min) > 60 BUN/Creatinine Ratio (7 - 25 %) 20.0 Magnesium (1.6 - 2.3 mg/dL) 2.0 Hematology CBC w Diff NO MAN DIFF REQ WBC (4.8 - 10.8 /CUMM) 11.3 H RBC (4.20 - 5.40 /CUMM) 3.61 L Hgb (12.0 - 16.0 G/DL) 9.8 L Hct (37 - 47 %) 29.0 L MCV (81.0 - 99.0 FL) 80.5 L MCH (27.0 - 31.0 PG) 27.0 RDW (11.5 - 14.5 %) 15.1 H Plt Count (130 - 400 /CUMM) 216 MPV (7.4 - 10.4 FL) 9.9 Gran % (42.2 - 75.2 %) 81.6 H Lymphocytes % (20.5 - 51.1 %) 11.4 L Monocytes % (1.7 - 9.3 %) 5.5 Eosinophils % (0 - 5 %) 1.1 Basophils % (0.0 - 2.0 %) 0.4 Absolute Granulocytes (1.4 - 6.5 /CUMM) 9.2 H Absolute Lymphocytes (1.2 - 3.4 /CUMM) 1.3 Absolute Monocytes (0.10 - 0.60 /CUMM) 0.6 Absolute Eosinophils (0.0 - 0.7 /CUMM) 0.1 Absolute Basophils (0.0 - 0.2 /CUMM) 0 PUBS MCHC (33.0 - 37.0 G/DL) 33.6 Assessment/Plan Assessment/Plan A: POD #4 s/p lap appy for perforated appendicitis; AVSS. Plan: Likely d/c home today with PO antibiotics ? duration. Will discuss with Dr. Caal. Core Measures/Miscellaneous Venous Thromboembolism VTE Risk Factors: Age > 40, Obesity, Surgery VTE Contraindications: No Contraindications VTE Prophylaxis Ordered Inpt Mech & Pharm VTE Diagnosis: No VTE Type: NONE VTE Confirmed by (Test): NONE Beta Angel Is Beta Angel a Home Med? No Antibiotics Is Patient on Antibiotics? Yes
[2016-06-18] MEDS ORDERED: CIPRO500 M1 PO (11:25)
[2016-06-18] MEDS ORDERED: PERCOCET 5-3251 EACH PO (11:25)
--- NOTE | 2016-06-22 10:15 | Surgical Discharge Summary ---
Visit Information Visit Dates Admission Date: 06/14/16 Discharge Date: 06/18/16 History of Present Illness Chief Complaint: abdominal pain Medical History Blood Transfusion Hx: No Neurological: NONE EENT: NONE Cardiovascular: hypertension Respiratory: JOSEPH on nocturnal CPAP Gastrointestinal: NONE Hepatic: NONE Renal: NONE Musculoskeletal: NONE Psychiatric: NONE Endocrine: NONE Blood Disorders: NONE Cancer(s): NONE GAME AND [employer] PROTECTOR/Reproductive: NONE History of MRSA: No History of VRE: No History of CDIFF: No Isolation History: Standard Surgical History Pertinent Surgical History: appendectomy, hysterectomy, knee arthroscopy, meniscal repair Family History Relations & Conditions If Any: MOTHER FH: diabetes mellitus MOTHER FH: diabetes mellitus Relation not specified for: FH: heart disease Psychosocial History Where Do You Live? Home Who Do You Live With? Family Services at Home: None What is Your Primary Language? Ukrainian ETOH Use: occasional use Other Addictive Behavior: . 2 children. Review of Systems: not performed at d/c Hospital Course Course Attending Physician: JOCELINE CONTRERAS MD Primary Care Physician: MARIA R COOPER MD Hospital Course: admitted after laparoscopic appendectomy for perforated appendicitis and peritonitis. cultures show resistant ecoli and pseudomonas and antibiotics tailored accordingly. diet initiated after return of bowel function. Allergies: Coded Allergies: prednisone (Severe, RASH 06/14/16) Sulfa (Sulfonamide Antibiotics) (UNKNOWN 06/14/16) Significant Procedures: laparoscopic appendectomy Disposition Summary Disposition Principal Diagnosis: Appendicitis with peritonitis Additional Diagnosis: sepsis Discharge Disposition: home or self care Discharge Instructions General Discharge Information Code Status: Full Code Patient's Diet: low fiber Patient's Activity: no lifting Follow-Up Instructions/Appts: 2 weeks Medications at Discharge Discharge Medications: Continue taking these medications: Losartan Potassium (Cozaar) 50 MG TABLET 1 Tablet ORAL DAILY Comments: Last Taken:06/18/16 Time:9AM Hydrochlorothiazide (Hydrochlorothiazide) 25 MG TABLET 1 Tablet ORAL DAILY Comments: Last Taken:06/18/16 Time:9AM Cholecalciferol (Vitamin D3) (Vitamin D3) 2,000 UNIT TABLET 1 Tablet ORAL DAILY Comments: NOT GIVEN Start taking the following new medications: Metronidazole (Flagyl) 500 MG TABLET 1 Tablet ORAL THREE TIMES DAILY Qty = 21 No Refills Ciprofloxacin HCl (Cipro) 500 MG TABLET 1 Tablet ORAL TWICE DAILY Qty = 14 No Refills Oxycodone HCl/Acetaminophen (Percocet 5-325 MG Tablet) 5 MG-325 MG TABLET 1 Tablet ORAL EVERY SIX HOURS NEEDED as needed for PAIN Qty = 20 No Refills Copies To: ALLISON TERRELL,MARIA R Lee
== END 2016-06-18 12:34 | DRG 853 ==
LOC: ERH 10:42 → ER-OR 11:23 → ERH 11:23 → 2NA 20:07
PROVIDERS: Physician Assistant; Physician Assistant Surgical; ADMIT Surgery
PROC: 0DTJ4ZZ Resection of Appendix, Percutaneous Endoscopic Approach (ICD-10-PCS; principal; 2016-06-14)
DX: A41.9 Sepsis, unspecified organism (principal); K35.2 Acute appendicitis with generalized peritonitis; I10 Essential (primary) hypertension; E66.9 Obesity, unspecified; Z68.33 Body mass index [BMI] 33.0-33.9, adult
CPT/HCPCS: 2NASP; 87075; 36415; 74177; 81003; 82436; 87040; 87086; 87804; 87804-59; 88304; 93005; 93010; 96361; 96365; 96375; J0131; J0696; J1170; J1630; J1644; J1885; J2185; J2250; J2405; J3010; J7042; S5012